=== PATIENT | female | born 1985 | race Caucasian/White ===

== ENCOUNTER 2018-02-04 19:04 | Inpatient (IN) | payer OTHER ==
[~2018-02-04] VITALS: Ht 160 cm; Wt 72.4 kg
[~2018-02-04 19:04] MED LIST: BACTRIM DS TAB1 EACH PO; CYCLOBENZAPRINE10 M1 PO; IBUPROFEN600 M1 PO; IBUPROFEN800 M1 PO; PERCOCET 5-3251 EACH PO; PREDNISONE10 M2 PO
--- NOTE | 2018-02-04 19:21 | ED GI/GU/ABDOMINAL COMPLAINT ---
History of Present Illness General Chief Complaint: Abdominal Pain/Flank Pain Stated Complaint: L FLANK PAIN,FEVER SINCE YEST Source: patient, family, old records Exam Limitations: no limitations Vital Signs & Intake/Output Vital Signs & Intake/Output Vital Signs Date Time Temp Pulse Resp B/P B/P Pulse O2 O2 Flow FiO2 Mean Ox Delivery Rate 02/05 2224 99.4 02/04 2110 100.9 02/04 2057 100.9 101 18 107/56 99 Room Air 02/04 191 102.9 129 17 141/73 97 Room Air Allergies Coded Allergies: No Known Allergies (07/15/17) Triage Note: PT TO ED WITH C/O ONE DAY OF NAUSEA, LEFT FLANK PAIN. REPORTS SHE NOTED HER URINE WAS CLOUDY TODAY. CURRENTLY HAS MENSES, UNABLE TO TELL IF SHE HAS HEMATURIA. HX KIDNEY STONES Triage Nurses Notes Reviewed? yes LMP (ages 10-50): now ? n Is pt currently ? No Onset: Abrupt Duration: day(s): (1), constant Timing: recent history Quality/Severity: aching, cramping, moderate, sharpness Severity Numbers: 7 Location: left flank Radiation: LLQ Activities at Onset: none Prior Abdominal Problems: similar symptoms No Modifying Factors: none Associated Symptoms: nausea/vomiting HPI: 32-year-old female history of kidney stones presents to the ER for evaluation playing of left flank pain radiating to the left lower quadrant than today associated with nausea poor appetite. No vomiting. She does report fevers today. She reports a cloudy urine no dysuria hematuria frequency. History of kidney stones for which she is passed on their own, she reports it feels similar. No history of abdominal surgeries in the past no recent trauma or injury. Has menses now. (Xuan CANTRELL,Socrates) Reconcile Medications Acetaminophen/Diphenhydramine (Tylenol Pm Ex-Strength Caplet) 500 MG-25 MG TABLET 1 TAB PO QPM PRN Pain (Reported) Multivitamin (Daily Value) 1 EACH TABLET 1 TAB PO DAILY supplements (Reported ) (Nicolle RAYA,Santos Rainey) Past History Travel History Traveled to [place] past 21 day No Medical History Any Pertinent Medical History? 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 No (Socrates Lange) Review of Systems Review of Systems Constitutional: Reports: see HPI. Comments Review of systems: See HPI, All other systems negative. Constitutional, fever, HEENT: no sore throat no congestion Cardiovascular: No chest pain Skin: no rashes, no change in skin Respiratory: No dyspnea no cough no sputum no hemoptysis GI: nausea no vomiting, no diarrhea, no bloating/constipation : No dysuria No hematuria, no frequency Muscle skeletal: No joint pain, no back pain, no neck pain, Neurologic: , no headache Heme/endocrine: No bruising Immunology: No lymphadenopathy (Socrates Lange) Physical Exam Physical Exam General Appearance: well developed/nourished, alert, awake Gastrointestinal: soft Comments: Well-developed well-nourished person in no acute distress HEENT: Normal EENT exam; PERRL, EOMI,. HEAD is atraumatic. moist mucous membranes. Neck: Supple, normal range of motion Back: Nontender, LEFT CVA tenderness. Full range of motion Cardiovascular: Regular rate and rhythms no murmurs Respiratory: Chest nontender.There were no bony deformities, no asymmetry. No respiratory distress. Patient speaking in full complete sentences. Breath sounds clear to auscultation bilaterally: NO W/R/R Abdomen: Soft, nontender nondistended, no appreciable organomegaly. Normal bowel sounds. No rebound/guarding, Extremity: No edema, full range of motion of extremitieS Neuro: Alert oriented x3, motor sensory normal. There were no obvious focal neurologic abnormalities. Skin: No appreciable rash on exposed skin, skin is warm and dry. Psych: Mood and affect is normal, memory and judgment is normal. Core Measures ACS in differential dx? No Sepsis Present: No Sepsis Focused Exam Completed? No (Socrates aLnge) ED Sepsis Exam Date of Focused Sepsis Exam: 02/04/18 Time of Focused Sepsis Exam: 2004 Sepsis Cardiac Exam: Tachycardia Sepsis Resp Exam: CTA Sepsis Cap Refill Exam: <2 Sec Sepsis Peripheral Pulse Exam: Normal Sepsis Peripheral Pulse Location: Radial Sepsis Skin Color Exam: Normal for Ethnicity Skin Temp/Moisture Exam: Warm/Dry (Socrates Lange) Progress Differential Diagnosis: bowel obstruction, cholecystitis, ectopic , gastritis, hernia, inflamm bowel dis, intrauterine , kidney stone, ovarian cyst, pancreatitis, peptic ulcer, PUD/GERD, perforated viscous, SBO, threatened AB, UTI/pyelo Plan of Care: Orders Procedure Date/time Status Nothing by Mouth 02/05 B Active CBC WITHOUT DIFFERENTIAL 02/05 06 Active BASIC ELECTROLYTES PLUS BUN&CR 02/05 06 Active Pathway - chart 02/05 2228 Active Pathway - chart 02/04 2222 Active House Staff 02/04 2222 Active Patient Data 02/04 2222 Active EKG 02/04 2222 Active Patient Data 02/04 2217 Active LACTIC ACID 02/04 2217 Complete Saline Lock 02/04 2149 Active Misc Message 02/04 2149 Active ED Holding Orders 02/04 2149 Active Admit to inpatient 02/04 2149 Active Saline Lock 02/05 2144 Active Misc Message 02/05 2144 Active ED Holding Orders 02/05 2144 Active Admit to inpatient 02/05 2144 Active Vital Signs 02/05 2144 Active Code Status 02/05 2144 Active CULTURE,URINE 02/04 1958 Active Add-on Test (ER Only) 02/04 1927 Active Add-on Test (ER Only) 02/04 1921 Active BLOOD CULTURE 02/04 1917 Active LIPASE 02/04 1917 Complete LACTIC ACID 02/04 1917 Complete HUMAN BETA HCG SCREEN 02/04 1917 Complete COMPREHENSIVE METABOLIC PANEL 02/04 1917 Complete CBC WITHOUT DIFFERENTIAL 02/04 1917 Complete URINALYSIS 02/04 1910 Complete Admit to inpatient 02/04 UNK Active VTE Mechanical Prophylaxis 02/04 UNK Active Vital Signs 02/04 UNK Active Activity/Ambulation 02/04 UNK Active Current Medications Sig/Ashley Start time Last Medication Dose Stop Time Status Admin Ceftriaxone Sodium 1,000 MG DAILY 02/05 09 UNVr (Rocephin) Heparin Sodium 5,000 UNIT Q8 02/05 06 UNVr (Porcine) Sodium Chloride 1,000 ML .Q10H 02/04 2355 AC (Normal Saline 0.9%) Potassium Chloride 40 MEQ ONCE ONE 02/04 2245 UNVr (K-Dur) 02/04 2246 Morphine Sulfate 2 MG Q4P PRN 02/04 2230 UNVr (Morphine) Sodium Chloride 1,000 ML BOLUS ONE 02/04 2145 AC 02/04 (Normal Saline 0.9%) 02/04 2244 2223 Laboratory Tests 02/04/180: Lactic Acid 1.2 02/04/182009: Urinalysis LIGHT H, Urine Color YEL, Urine Clarity CLDY H, Urine pH 6.0, Ur Specific [place] 1.025, Urine Protein 100 H, Urine Ketones NEG, Urine Nitrite POS H, Urine Bilirubin NEG, Urine Urobilinogen 0.2, Ur Leukocyte Esterase SMALL H, Ur Microscopic SEDIMENT EXAMINED, Urine RBC 3-5, Urine WBC 15-25 H, Ur Epithelial Cells PACKD H, Urine Bacteria PACKD H, Urine Mucus FEW, Urine Hemoglobin LARGE H, Urine Glucose NEG 02/04/181938: Anion Gap 10, Estimated GFR 43 L, BUN/Creatinine Ratio 11.4, Glucose 137 H, Lactic Acid 2.7 H, Calcium 8.6, Total Bilirubin 0.9, AST 29, ALT 21, Alkaline Phosphatase 75, Total Protein 5.6 L, Albumin 3.1 L, Globulin 2.5, Albumin/ Globulin Ratio 1.2, Lipase < 10 L, Total Beta HCG NEGATIVE, CBC w Diff MAN DIFF ORDERED, RBC 3.77 L, MCV 98.3, MCH 33.4 H, MCHC 33.9, RDW 15.5 H, MPV 9.8, Gran % 93.8 H, Lymphocytes % 2.7 L, Monocytes % 3.4, Eosinophils % 0.1, Basophils % 0, Absolute Granulocytes 22.4 H, Segmented Neutrophils 90 H, Band Neutrophils 4, Absolute Lymphocytes 0.6 L, Lymphocytes 1 L, Monocytes 5, Absolute Monocytes 0.8 H, Absolute Eosinophils 0, Absolute Basophils 0, Platelet Estimate VERIFIED BY SMEAR, Normocytic RBCs VERIFIED, Normochromic RBCs VERIFIED Microbiology 02/04 2010 URINE ROUT: Urine Culture - RECD 02/04 1943 BLOOD: Blood Culture - RECD 02/04 1939 BLOOD: Blood Culture - RECD Labs ordered old records reviewed patient acute IV Toradol IV Dilaudid CAT scan ordered. 2019 repeat temp 99.8; pain imrpved with medication, iv fluids running. d/w pt labs to date, ua provided, rocephin 1g iv ordered. pendnig ct case d/w and signed out to adrien fernandez at [address] Valverde agrees with plan (Socrates Lange) Socrates LEACH PA-C discussed with me HANDOFF 2011 (Socrates Toussaint) Diagnostic Imaging: Viewed by Me: CT Scan. Discussed w/RAD: CT Scan. Initial ED EKG: none Hand-Off Endorsed To: Socrates Toussaint Endorsed Time: 2100 Pending: CT, labs (Socrates Lange) Departure Departure Disposition: STILL A PATIENT Condition: Stable Referrals: Roel RAYA,Levar Johnson (PCP/Family) Departure Forms: Customer Survey General Discharge Information (Socrates Lange) Departure Clinical Impression Primary Impression: Sepsis Secondary Impressions: Kidney stone, Obstructive uropathy, Pyelonephritis (Socrates Toussaint) PA/BLOOD BANK BUSINESS MANAGER Co-Sign Statement Statement: ED Attending supervision documentation- [x] I saw and evaluated the patient. I have also reviewed all the pertinent lab results and diagnostic results. I agree with the findings and the plan of care as documented in the PA's/BLOOD BANK BUSINESS MANAGER's documentation. 02/04/18, 22:19.... well appearing in ED... ct/lab evidence of pyelo... merits iv abx, iv fluids. [] I have reviewed the ED Record and agree with the PA's/BLOOD BANK BUSINESS MANAGER's documentation. [] Additions or exceptions (if any) to the PAs/BLOOD BANK BUSINESS MANAGER's note and plan are summarized below: [] (Nicolle RAYA,Santos Rainey)
[2018-02-04 19:57] LABS: ABSOLUTE BASOPHIL COUNT 0 /CUMM (0.0-0.2); ABSOLUTE EOSINOPHIL COUNT 0 /CUMM (0.0-0.7); ABSOLUTE GRANULOCYTE CT 22.4 /CUMM (1.4-6.5); ABSOLUTE LYMPH COUNT 0.6 /CUMM (1.2-3.4); ABSOLUTE MONOCYTE COUNT 0.8 /CUMM (0.10-0.60); BASOPHIL % 0 % (0.0-2.0); EOSINOPHIL % 0.1 % (0-5); HEMATOCRIT 37.1 % (37-47); MEAN CORPUSCULAR HGB 33.4 PG (27.0-31.0); MEAN CORPUSCULAR HGB CONC 33.9 G/DL (33.0-37.0); MEAN CORPUSCULAR VOLUME 98.3 FL (81.0-99.0); MEAN PLATELET VOLUME 9.8 FL (7.4-10.4); PLATELET COUNT 244 /CUMM (130-400); RBC DISTRIBUTION WIDTH 15.5 % (11.5-14.5); RED BLOOD CELL CT 3.77 /CUMM (4.20-5.40); WHITE BLOOD CELL COUNT 23.9 /CUMM (4.8-10.8)
[2018-02-04 20:01] LABS: GRANULOCYTE % 93.8 % (42.2-75.2)
--- NOTE | 2018-02-04 21:19 | CT SCAN REPORT ---
EXAMINATION: CT ABDOMEN AND PELVIS WITHOUT CONTRAST CLINICAL INFORMATION: Kidney stone COMPARISON: 2017 TECHNIQUE: Multidetector volumetric imaging was performed from the superior aspect of the liver through the pubic symphysis. Sagittal and coronal reformatted images were obtained on the technologist's workstation. DLP: 257 mGy-cm FINDINGS: LUNG BASES: The visualized lung bases are unremarkable. LIVER, GALLBLADDER, AND BILIARY TREE: The liver is enlarged. The gallbladder is unremarkable with no evidence of radiopaque gallstones, gallbladder wall thickening, or obvious pericholecystic inflammatory changes. PANCREAS: Unremarkable. SPLEEN: Unremarkable. ADRENAL GLANDS: Unremarkable. KIDNEYS AND URETERS: There is LEFT hydronephrosis and hydroureter secondary to a stone lodged in the LEFT ureteropelvic junction measure about 5.5 mm in diameter. Left kidney is mildly swollen, there is mild perinephric fat stranding. No CT evidence of rupture of the LEFT renal pelvis. Right kidney is normal. There are additional 2 mm nonobstructing stones in the upper and calyces LEFT kidney. BLADDER: Unremarkable. GASTROINTESTINAL TRACT: The small and large bowel are unremarkable. The appendix is unremarkable. ABDOMINAL WALL: No significant hernia is appreciated. LYMPH NODES: There are mildly prominent retroperitoneal LEFT para-aortic lymph nodes might be reactive. VASCULAR: Unremarkable. PELVIC VISCERA: IUD in place. OSSEOUS STRUCTURES: Unremarkable. IMPRESSION: 1. Left renal hydronephrosis secondary to a 5.5 mm stone now lodged in the LEFT ureter at the ureterovesicular junction. Left kidney mildly swollen, mild perinephric fat stranding present. 2. There are additional 2 mm nonobstructing stones in the upper calyx LEFT kidney. 2 mm nonobstructing stone lower calyx LEFT kidney. 3. Enlarged liver unchanged. 4. Mildly enlarged retroperitoneal LEFT periaortic lymph nodes might be reactive. Clinical correlation and follow-up recommended.
--- NOTE | 2018-02-04 21:49 | History & Physical ---
Kika Ryan 02/04/182137: General Information and HPI MD Statement: I have seen and personally examined CHATO NIÑO and documented this H&P. The patient is a 32 year old F who presented with a patient stated chief complaint of [Flank pain]. Source of Information: patient, old records Exam Limitations: no limitations History of Present Illness: Ms. Niño is a 32yo F w/ pMH of nephrolithiasis in 2002 s/p passage of two by medication without procedure, and one more stone left in the left kidney, benign breast tumors s/p resection, IUD x 7 yrs, hx of HTN during , hx of UTI in 2017, presented with left flank pain radiating to the left lower quadrant w/ fever/nausea/decreased appetite, but no vomit. She had this left flank pain that was not resolved by Aleve overnight. She is also currently in period x 3 days with spotty bloody, however denied hematuria and endorsed cloudy urine, with possible foul smell during ER. She had loose stool couple days ago but not currently. During our clinical interaction, patient denied recent travel/sick contacts, lightheadedness/diaphoresis/night sweat/weight change/cough/SOB/Chest Pain/ Palpitation/bowel movement abnormality, or other skin/musculoskeletal/ neurological/mood disorders. -Smoking: denied -Alcohol: occasional -Rec Drugs: denied Allergies/Medications Allergies: Coded Allergies: No Known Allergies (07/15/17) Home Med list Acetaminophen/Diphenhydramine (Tylenol Pm Ex-Strength Caplet) 500 MG-25 MG TABLET 1 TAB PO QPM PRN Pain (Reported) Multivitamin (Daily Value) 1 EACH TABLET 1 TAB PO DAILY supplements (Reported ) Past History Travel History Traveled to [place] past 21 day No Medical History Neurological: NONE EENT: NONE Cardiovascular: NONE Respiratory: NONE Gastrointestinal: NONE Hepatic: NONE Renal: KIDNEY STONES Musculoskeletal: NONE Psychiatric: NONE Endocrine: NONE Blood Disorders: NONE Cancer(s): NONE 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 Ambulation: independent IADLs Independent: shopping, housework, finances, food prep, telephone, transportation , medication admin. Review of Systems Review of Systems Constitutional: Reports: see HPI. Exam & Diagnostic Data Last 24 Hrs of Vital Signs/I&O Vital Signs Date Time Temp Pulse Resp B/P B/P Pulse O2 O2 Flow FiO2 Mean Ox Delivery Rate 02/04 2110 100.9 02/04 2057 100.9 101 18 107/56 99 Room Air 02/04 1911 102.9 129 17 141/73 97 Room Air Physical Exam General Appearance Alert, Oriented X3, Cooperative, Mild Distress Skin No Rashes, No Breakdown, No Significant Lesion Skin Temp/Moisture Exam: Warm/Dry Sepsis Skin Exam (color): Normal for Ethnicity HEENT Atraumatic, PERRLA Neck Supple, No JVD Lymphatic Axillary nl, Cervical nl Cardiovascular tachycardia, regular rhythm Lungs Clear to Auscultation, Normal Air Movement Abdomen Normal Bowel Sounds, Soft, CVA tenderness at left flank LLQ ab tenderness shooting from the back Neurological Normal Speech, Strength at 5/5 X4 Ext, Normal Tone, Sensation Intact Extremities No Edema, Normal Pulses, No Tenderness/Swelling Last 24 Hrs of Labs/[place]: Laboratory Tests 02/04/182199: Lactic Acid 1.2 02/04/182009: Urinalysis LIGHT H, Urine Color YEL, Urine Clarity CLDY H, Urine pH 6.0, Ur Specific [place] 1.025, Urine Protein 100 H, Urine Ketones NEG, Urine Nitrite POS H, Urine Bilirubin NEG, Urine Urobilinogen 0.2, Ur Leukocyte Esterase SMALL H, Ur Microscopic SEDIMENT EXAMINED, Urine RBC 3-5, Urine WBC 15-25 H, Ur Epithelial Cells PACKD H, Urine Bacteria PACKD H, Urine Mucus FEW, Urine Hemoglobin LARGE H, Urine Glucose NEG 02/04/18 193: Anion Gap 10, Estimated GFR 43 L, BUN/Creatinine Ratio 11.4, Glucose 137 H, Lactic Acid 2.7 H, Calcium 8.6, Total Bilirubin 0.9, AST 29, ALT 21, Alkaline Phosphatase 75, Total Protein 5.6 L, Albumin 3.1 L, Globulin 2.5, Albumin/ Globulin Ratio 1.2, Lipase < 10 L, Total Beta HCG NEGATIVE, CBC w Diff MAN DIFF ORDERED, RBC 3.77 L, MCV 98.3, MCH 33.4 H, MCHC 33.9, RDW 15.5 H, MPV 9.8, Gran % 93.8 H, Lymphocytes % 2.7 L, Monocytes % 3.4, Eosinophils % 0.1, Basophils % 0, Absolute Granulocytes 22.4 H, Segmented Neutrophils 90 H, Band Neutrophils 4, Absolute Lymphocytes 0.6 L, Lymphocytes 1 L, Monocytes 5, Absolute Monocytes 0.8 H, Absolute Eosinophils 0, Absolute Basophils 0, Platelet Estimate VERIFIED BY SMEAR, Normocytic RBCs VERIFIED, Normochromic RBCs VERIFIED Microbiology 02/04 2010 URINE ROUT: Urine Culture - RECD 02/04 1943 BLOOD: Blood Culture - RECD 02/04 1939 BLOOD: Blood Culture - RECD Assessment/Plan Assessment: On admission, Vitals: Tmax 102.9, Tachycardia 129->101, RR 18, BP 107/56, 99% RA -CBC: WBC 23.9, H/H stable, w/ gran 93.8% -BMP: Hyponatremia 133, Hypokalemia 3.3, elevated Cr 1.4, lactic acidosis 2.7 -UA: +ve LE/nitrites/WBC -Ab CT: 1. Left renal hydronephrosis secondary to a 5.5 mm stone now lodged in the LEFT ureter at the ureterovesicular junction. Left kidney mildly swollen, mild perinephric fat stranding present. 2. There are additional 2 mm nonobstructing stones in the upper calyx LEFT kidney. 2 mm nonobstructing stone lower calyx LEFT kidney. 3. Enlarged liver unchanged. 4. Mildly enlarged retroperitoneal LEFT periaortic lymph nodes might be reactive. Clinical correlation and follow-up recommended. Problem list/Assessment/Hospital Course: #Severe sepsis 2/2 pylonephritis (fever, tachycardia, source of infx, lactic acidosis) #Pyelonephritis w/ Nephrolithiasis/obstructive uropathy #KENNEDY 2/2 dehydration #Hyponatremia #Hypokalemia #PMH of nephrolithiasis s/p stone passage, UTI, IUD - Admit to general medicine, vitals per protocol - Pain control per pathway, patient's pain was not controlled by dialudid 2mg IV /toradol, will start with morphien 2mg q4prn and check - obtain baseline EKG - continuous IVF and trend BEP - replete K w/ PO K-dur once and recheck - start ABx ceftriaxone and tailor per clinical course - Pending urology consult in the AM, will keep NPO for now for possible procedures - Obtain baseline EKG - pending urine/blood cultures for Abx tailoring DVT prophylaxis Pharm PPX + ALPS NPO Full Code As Ranked By This Provider Problem List: 1. Obstructive uropathy 2. Pyelonephritis 3. Sepsis 4. Lactic acidosis Core Measures/Misc (05/27) Acute Coronary Syndrome ACS Diagnosis: No Congestive Heart Failure Congestive Heart Failure Diagnosis No Cerebrovascular Accident CVA/TIA Diagnosis: No VTE (View Protocol) VTE Risk Factors Acute Medical Illness No Mechanical VTE Prophylaxis d/t N/A MechProphylax Ordered No VTE Pharm Prophylaxis d/t NA PharmProphylax ordered Sepsis (View protocol) Sepsis Present: Yes If YES complete Sepsis Event Note If YES complete Sepsis Event Note Serafin Murray 02/04/18 2303: Core Measures/Misc (05/27) Sepsis (View protocol) If YES complete Sepsis Event Note If YES complete Sepsis Event Note Resident Review Statement Resident Statement: examined this patient, discussed with procurement intern, agreed with procurement intern Other Findings: Ms Niño is a 32 year old woman w/ a PMHx of nephrolithiasis( dx'ed 2012 ), last UTI ( dx'ed 2012), came in for a evaluation of left flank pain radiating to the LLQ that started on the previous night of presentatation. Pain was not relieved on taking NSAID, and she woke up early in the am with worsening pain, associated w/ nausea, but no vomiting. Reported fever and chills. Also reported cloudy urine, and dyspurea but no hematurea. At the time of admission, temp 102.9, NM 129, RR 17, BP 141/73, 97% RA. General Exam: AAOx3, mild distress, Skin: No rashes, no breakdown, mucus membranes dry ;HEENT: PERRLA, EOMI;Neck: Supple, No JVD; No cervical lymphadenopathy;CVS: tachycardia, Reg Rate, Normal S1,S2, No MGR;Resp: Normal air entry, no ronchi/rales;Abdomen: Soft, LLQ tenderness, left CVA tenderness, Normal Bowel Sounds;Neuro: Normal Speech, Strength 5/5 b/l x 4 extremities, Sensation intact, CN III-XII NL, Reflexes 2+;Extremities: No cyanosis, no pedal edema. Pertinent lab findings: WBC: 23.9(93% granulocytes), Hb 12.6, MCV 98.3, Platelets 244. Sodium 133, Potassium 3.3, Cl 99, CO2 24, AG 10 Renal Fn- BUN 16, Sr Cr 1.4 Lactate 2.7--> Liver fn- AST 29, ALT 21, Alk Phs 75 Albumin 3.1. UA- cloudy, Protein > 100, nitrites +, ULE +, Epithelial cells + ( not a great sample), bacteria + CT scan abdomen 02/04/18- 1. Left renal hydronephrosis secondary to a 5.5 mm stone now lodged in the LEFT ureter at the ureterovesicular junction. Left kidney mildly swollen, mild perinephric fat stranding present. 2. There are additional 2 mm nonobstructing stones in the upper calyx LEFT kidney. 2 mm nonobstructing stone lower calyx LEFT kidney. 3. Enlarged liver unchanged. 4. Mildly enlarged retroperitoneal LEFT periaortic lymph nodes might be reactive. Clinical correlation and follow-up recommended. Etiology in this case with dysuria associated with fever, chills, costovertebral /suprapubic tenderness is likely from Pyelonephritis. Considering pyelonephritis being a clinical diagnosis, radiological evidence of fat stranding is confirmed the diagnosis. Bacterial etiology with Escherichia coli being the most likely organism, but other uropathogens such as Klebsiella, Citrobacter, Enterobacter are possible etiologies. Predisposing factors such as mechanical obstruction from nephrolithiasis is the likely etiology. Differential diagnosis considered PID, renal or perinephric abscesses. Problem list: 1. Pyelonephritis 2. KENNEDY 3. Nephrolithiasis 4. Sepsis 5. Electrolyte abnormality. - Admit the patient to general medicine service. -Empiric antibiotics with ceftriaxone, pending urine culture -Follow blood culture, usually do not correlate with more severe disease. -Monitor vitals closely -Follow CBCs daily -Treat sepsis with 0.9% saline, follow blood cultures, trend lactate - Pain management w/ opiates - EKG for checkin QTc, and to r/o arrythmias given her tachycardia. - Anti-emetics prn - Check Urine lytes, FENa -If the patient has abnormal hemodynamics, call urology LEANDRO for a possible stent placement. -Urology has been consulted by ER, who plan to take the patient to the OR for stent placement. Housekeeping checklist: #1 DVT prophylaxis-subcutaneous heparin #2 GI prophylaxis-Protonix if needed. #3 CODE STATUS-full code #4 consults-urology #5 nothing by mouth Joon RAYA, [facility] 02/04/18 2322: Core Measures/Misc (05/27) Sepsis (View protocol) If YES complete Sepsis Event Note If YES complete Sepsis Event Note Attending MD Review Statement Attending Statement Attending MD Statement: examined this patient, discuss w/resident/PA/CONSTRUCTION PERSON, agreed w/resident/PA/CONSTRUCTION PERSON, discussed with family, reviewed images, amended to note Attending Assessment/Plan: 32 yo F with h/o nephrolithiasis, is here with left flank pain that started one night prior to admission. Pain radiates into the left lower quadrant and is associated with nausea, fever and poor appetite. She took NSAIDs without relief . She reports dysuria and foul smelling cloudy urine today. She has her periods so is unable to report any hematuria. She has had kidney stones in the past, did not require any procedures and was able to pass them on her own. Vitals: Tmax 102.9, tachycardic 90-120's, BP 107/56, sats 98% RA. Exam: AAO, in mild distress due to pain, dry mucosa, Neck supple, Skin warm and dry, Capillary refill ~ 2 secs, Chest clear, Heart S1S2 regular, Abdomen soft, tender LLQ, left CVA tenderness+. Labs: WBC 23.9, bands 4, Na 133, K 3.3, BUN 16, Creat 1.4 (baseline 0.8), glucose 137, lactic acid 2.7. Total Beta HCG negative. UA cloudy, proteinuria, positive nitrite, small LE, WBC 15-25, bacteria packed. CT abd/pelvis: left renal hydronephrosis secondary to 5.5 mm stone at the ureterovesicular junction, left kidney mildly swollen, mild perinephric fat stranding+. Additional nonobstructing stones in left kidney. Assessment and plan: 1. Severe sepsis possibly gram negative infection 2. Acute pyelonephritis 3. Obstructive uropathy with left hydronephrosis 4. Acute kidney injury 5. Lactic acidosis 6. Hypokalemia and hyponatremia - Admit to General medicine - Panculture - Initiate IV ceftriaxone - IV fluids with potassium supplementation - NPO after midnight for possible stent placement - Urology consult - Pain management with IV morphine PRN DVT ppx Hep SC. Full code.
--- NOTE | 2018-02-04 21:55 | Admission Certification ---
Admission Certification Certification Statement - As attending physician, I certify that at the time of - admission, based on clinical presentation, severity of - symptoms, need for further diagnostic testing and - therapeutic interventions, and risk of adverse outcomes - without in-hospital treatment, in my clinical assessment, - this patient requires an acute hospital stay for a minimum - of two nights or longer. I have also considered psychsocial - factors such as support system, advanced age, financial - issues, cognitive issues, and failed out-patient treatments, - past re-admission history, safety of patient, and lack of - compliance as applicable. Specific rationale supporting this admission is: Sepsis, obstructive uropathy, acute pyelonephritis, KENNEDY.
[2018-02-04] MEDS ORDERED: TYLENOL PM EX-1 EACH PO (22:12)
[2018-02-04] MEDS ORDERED: DAILY VALUE1 EACH PO (22:12)
[2018-02-05 00:34] VITALS: BP 98/60
[2018-02-05 07:10] VITALS: BP 120/76
--- NOTE | 2018-02-05 07:20 | PN- Housestaff ---
Subjective Follow-up For: Left hydroureteronephrosis Subjective: Patient seen and examined at bedside. No overnight events. Patient appears to be in severe pain. She complains of left flank pain of 8 x 10 severity with radiation to the suprapubic region. She denies nausea, vomiting. Review of Systems Constitutional: Reports: no symptoms, see HPI. Objective Last 24 Hrs of Vital Signs/I&O Vital Signs Date Time Temp Pulse Resp B/P B/P Pulse O2 O2 Flow FiO2 Mean Ox Delivery Rate 02/05 0710 97.6 120 20 120/76 94 Room Air 02/05 0054 96 Room Air 02/05 0034 98.3 108 20 98/60 96 Room Air 02/04 2321 99.4 90 18 102/62 99 Room Air 02/04 2224 99.4 98 18 102/59 98 Room Air 02/04 2110 100.9 02/04 2057 100.9 101 18 107/56 99 Room Air 02/04 1911 102.9 129 17 141/73 97 Room Air Intake & Output 02/05 1600 02/05 0800 02/05 0000 Intake Total 650 Output Total 600 Balance 50 Intake, IV 650 Output, Urine 600 Patient 146 lb 145 lb Weight Weight Bed scale Reported by Patient Measurement Method Physical Exam General Appearance: Alert, Oriented X3, Cooperative, No Acute Distress Cardiovascular: Regular Rate, Normal S1, Normal S2, No Murmurs Lungs: Normal Air Movement Abdomen: left flank tenderness Neurological: Normal Speech, Strength at 5/5 X4 Ext, Normal Tone, Sensation Intact Current Medications: Current Medications Sig/Ashley Start time Last Medication Dose Route Stop Time Status Admin Acetaminophen 1,000 MG Q8P PRN 02/05 0945 02/05 N/A 1 UNIT IV 02/06 1744 1046 Acetaminophen 0 .STK-MED ONE 02/04 2050 DC IV Acetaminophen 1,000 MG ONCE ONE 02/04 2045 DC 02/04 N/A 1 UNIT IV 02/04 Albuterol Sulfate 2 PUF Q4 PRN 02/05 010 AC 02/05 INH 0451 Alprazolam 0.25 MG TID PRN 02/05 0100 AC 02/05 PO 02/12 0059 0945 Ceftriaxone Sodium 1,000 MG 02/05 AC IV Ceftriaxone Sodium 1,000 MG DAILY 02/05 09 DC IV Ceftriaxone Sodium 0 .STK-MED ONE 02/05 2108 DC .ROUTE Ceftriaxone Sodium 1,000 MG ONCE ONE 02/04 2045 DC 02/04 IV 02/04 Dextrose/Sodium 1,000 ML Q13H 02/05 0745 AC 02/05 Chloride IV 0802 Heparin Sodium 5,000 UNIT Q8 02/05 0600 AC 02/05 (Porcine) SC 0534 Hydromorphone HCl 0 .STK-MED ONE 02/04 2145 DC .ROUTE Hydromorphone HCl 1 MG ONCE ONE 02/04 2130 DC 02/04 IV 02/04 Hydromorphone HCl 0 .STK-MED ONE 02/04 1942 DC .ROUTE Hydromorphone HCl 1 MG ONCE ONE 02/04 193 DC 02/04 IV 02/04 Ketorolac 0 .STK-MED ONE 02/04 1941 DC Tromethamine .ROUTE Ketorolac 30 MG ONCE ONE 02/04 193 DC 02/04 Tromethamine IV 02/04 1931 194 Morphine Sulfate 4 MG Q4P PRN 02/05 0315 02/05 IV 0940 Morphine Sulfate 0 .STK-MED ONE 02/04 224 DC .ROUTE Morphine Sulfate 4 MG ONCE ONE 02/04 2230 DC IV 02/04 223 Morphine Sulfate 2 MG ONCE ONE 02/04 2230 DC 02/04 IV 02/04 223 2240 Morphine Sulfate 2 MG Q4P PRN 02/04 2230 DC 02/05 IV 0040 Ondansetron HCl 0 .STK-MED ONE 02/04 233 DC .ROUTE Ondansetron HCl 4 MG Q6P PRN 02/04 2330 AC 02/05 IV 1006 Ondansetron HCl 4 MG ONCE ONE 02/05 2000 DC 02/04 IV 02/04 Ondansetron HCl 0 .STK-MED ONE 02/04 1958 DC .ROUTE Potassium Chloride 0 .STK-MED ONE 02/04 2345 DC PO Potassium Chloride 40 MEQ ONCE ONE 02/04 2245 DC 02/04 PO 02/04 2246 2339 Sodium Chloride 1,000 ML .Q10H 02/04 2355 AC 02/05 IV 02/05 1954 0033 Sodium Chloride 1,000 ML BOLUS ONE 02/04 2145 DC 02/04 IV 02/043 Sodium Chloride 1,000 ML BOLUS ONE 02/04 2030 DC 02/04 IV 02/04 Sodium Chloride 1,000 ML BOLUS ONE 02/04 1945 DC 02/04 IV 02/04 Sodium Chloride 1,000 ML BOLUS ONE 02/04 193 DC 02/04 IV 02/04 Last 24 Hrs of Lab/[place] Results Last 24 Hrs of Labs/Mics: Laboratory Tests 02/05/18 0716: Anion Gap 11, Estimated GFR 47 L, BUN/Creatinine Ratio 13.1, CBC w Diff MAN DIFF ORDERED, RBC 3.38 L, MCV 99.0, MCH 33.2 H, MCHC 33.5, RDW 15.3 H, MPV 10.9 H, Gran % 93.0 H, Lymphocytes % 3.6 L, Monocytes % 2.6, Eosinophils % 0.8, Basophils % 0, Absolute Granulocytes 16.7 H, Segmented Neutrophils 71, Band Neutrophils 14 H, Absolute Lymphocytes 0.6 L, Lymphocytes 4 L, Monocytes 6, Absolute Monocytes 0.5, Eosinophils 5, Absolute Eosinophils 0.2, Absolute Basophils 0, Platelet Estimate VERIFIED BY SMEAR, Normocytic RBCs VERIFIED, Normochromic RBCs VERIFIED 02/04/182199: Lactic Acid 1.2 02/04/182011: Ur Random Creatinine 206.7, Ur Random Sodium < 5 L, Ur Random Potassium 57.8, Fraction Sodium Excret 0.0 02/04/18 2010: Urinalysis LIGHT H, Urine Color YEL, Urine Clarity CLDY H, Urine pH 6.0, Ur Specific [address] 1.025, Urine Protein 100 H, Urine Ketones NEG, Urine Nitrite POS H, Urine Bilirubin NEG, Urine Urobilinogen 0.2, Ur Leukocyte Esterase SMALL H, Ur Microscopic SEDIMENT EXAMINED, Urine RBC 3-5, Urine WBC 15-25 H, Ur Epithelial Cells PACKD H, Urine Bacteria PACKD H, Urine Mucus FEW, Urine Hemoglobin LARGE H, Urine Glucose NEG 02/04/181938: Anion Gap 10, Estimated GFR 43 L, BUN/Creatinine Ratio 11.4, Glucose 137 H, Lactic Acid 2.7 H, Calcium 8.6, Total Bilirubin 0.9, AST 29, ALT 21, Alkaline Phosphatase 75, Total Protein 5.6 L, Albumin 3.1 L, Globulin 2.5, Albumin/ Globulin Ratio 1.2, Lipase < 10 L, Total Beta HCG NEGATIVE, CBC w Diff MAN DIFF ORDERED, RBC 3.77 L, MCV 98.3, MCH 33.4 H, MCHC 33.9, RDW 15.5 H, MPV 9.8, Gran % 93.8 H, Lymphocytes % 2.7 L, Monocytes % 3.4, Eosinophils % 0.1, Basophils % 0, Absolute Granulocytes 22.4 H, Segmented Neutrophils 90 H, Band Neutrophils 4, Absolute Lymphocytes 0.6 L, Lymphocytes 1 L, Monocytes 5, Absolute Monocytes 0.8 H, Absolute Eosinophils 0, Absolute Basophils 0, Platelet Estimate VERIFIED BY SMEAR, Normocytic RBCs VERIFIED, Normochromic RBCs VERIFIED Microbiology 02/04 2010 URINE ROUT: Urine Culture - RES ESCHERICHIA COLI 02/04 1943 BLOOD: Blood Culture - RES GRAM NEGATIVE RODS 02/04 1939 BLOOD: Blood Culture - RES GRAM NEGATIVE RODS Assessment/Plan Assessment: Ms Niño is a 32 year old woman w/ a PMHx of nephrolithiasis( dx'ed 2012 ), last UTI ( dx'ed 2012), came in for a evaluation of left flank pain radiating to the LLQ that started on the previous night of presentatation. Pain was not relieved on taking NSAID, and she woke up early in the am with worsening pain, associated w/ nausea, but no vomiting. Reported fever and chills. Also reported cloudy urine, and dyspurea but no hematurea. Assessment and plan Problem list: 1. Left Pyelonephritis secondary due to nephrolithiasis causing left-sided hydroureteronephrosis. 2. KENNEDY-resolving 3. Sepsis * Patient being treated with IV fluids for her AK I secondary due to left nephrolithiasis. Patient is nothing by mouth for left ureteral stent placement today. * Sepsis-patient is bacteremic. Has 14 bands but her leukocytosis is trending down. Patient urine culture growing Escherichia coli. We will follow final cultures. Patient is on ceftriaxone. Patient blood culture is growing gram- negative rods. We will follow final cultures. * Spoke with Dr. Bansal over the phone who will do left renal stent placement today. * Strict I's and O's * Monitor vitals. Code-full code DVT prophylaxis-heparin Problem List: 1. Obstructive uropathy Pain Ratin Pain Location: left flank Pain Goal: Remain pain free Pain Plan: tylenol Tomorrow's Labs & Rationales: robe holm
--- NOTE | 2018-02-05 08:24 | PN- Student ---
Subjective Subjective: No acute events overnight. Patient seen and examined this morning. patient complains of pain al over the body, specially in the left side back and stomach. Objective Objective: Vital Signs Date Time Temp Pulse Resp B/P B/P Pulse O2 O2 Flow FiO2 Mean Ox Delivery Rate 02/05 1311 97.7 100 18 116/74 96 Room Air 02/05 0710 97.6 120 20 120/76 94 Room Air 02/05 0054 96 Room Air 02/05 0034 98.3 108 20 98/60 96 Room Air 02/04 2321 99.4 90 18 102/62 99 Room Air 02/04 2224 99.4 98 18 102/59 98 Room Air 02/04 2110 100.9 02/04 2057 100.9 101 18 107/56 99 Room Air 02/04 1911 102.9 129 17 141/73 97 Room Air Intake & Output 02/05 1600 02/05 0800 02/05 0000 Intake Total 650 Output Total 600 Balance 50 Intake, IV 650 Output, Urine 600 Patient 146 lb 145 lb Weight Weight Bed scale Reported by Patient Measurement Method PE: General= young female in a lot of pain, moving around trying to look for a comfortable position for the pain. HEENT= NCAT, anicteric sclera, moit oral mucosa, no exudate Lungs= symetrical chest expansion, clear bilateral CVS= normal S1 and S2, no murmur, rub or gallop Abd= present bowel sounds, tender to palpation over the left upper and lower quadrant, some cva tenderness, nondistended Results Results: Laboratory Tests 02/05/18 0716: Anion Gap 11, Estimated GFR 47 L, BUN/Creatinine Ratio 13.1, CBC w Diff MAN DIFF ORDERED, RBC 3.38 L, MCV 99.0, MCH 33.2 H, MCHC 33.5, RDW 15.3 H, MPV 10.9 H, Gran % 93.0 H, Lymphocytes % 3.6 L, Monocytes % 2.6, Eosinophils % 0.8, Basophils % 0, Absolute Granulocytes 16.7 H, Segmented Neutrophils 71, Band Neutrophils 14 H, Absolute Lymphocytes 0.6 L, Lymphocytes 4 L, Monocytes 6, Absolute Monocytes 0.5, Eosinophils 5, Absolute Eosinophils 0.2, Absolute Basophils 0, Platelet Estimate VERIFIED BY SMEAR, Normocytic RBCs VERIFIED, Normochromic RBCs VERIFIED 02/04/18 2200: Lactic Acid 1.2 02/04/182011: Ur Random Creatinine 206.7, Ur Random Sodium < 5 L, Ur Random Potassium 57.8, Fraction Sodium Excret 0.0 02/04/182009: Urinalysis LIGHT H, Urine Color YEL, Urine Clarity CLDY H, Urine pH 6.0, Ur Specific [place] 1.025, Urine Protein 100 H, Urine Ketones NEG, Urine Nitrite POS H, Urine Bilirubin NEG, Urine Urobilinogen 0.2, Ur Leukocyte Esterase SMALL H, Ur Microscopic SEDIMENT EXAMINED, Urine RBC 3-5, Urine WBC 15-25 H, Ur Epithelial Cells PACKD H, Urine Bacteria PACKD H, Urine Mucus FEW, Urine Hemoglobin LARGE H, Urine Glucose NEG 02/04/181938: Anion Gap 10, Estimated GFR 43 L, BUN/Creatinine Ratio 11.4, Glucose 137 H, Lactic Acid 2.7 H, Calcium 8.6, Total Bilirubin 0.9, AST 29, ALT 21, Alkaline Phosphatase 75, Total Protein 5.6 L, Albumin 3.1 L, Globulin 2.5, Albumin/ Globulin Ratio 1.2, Lipase < 10 L, Total Beta HCG NEGATIVE, CBC w Diff MAN DIFF ORDERED, RBC 3.77 L, MCV 98.3, MCH 33.4 H, MCHC 33.9, RDW 15.5 H, MPV 9.8, Gran % 93.8 H, Lymphocytes % 2.7 L, Monocytes % 3.4, Eosinophils % 0.1, Basophils % 0, Absolute Granulocytes 22.4 H, Segmented Neutrophils 90 H, Band Neutrophils 4, Absolute Lymphocytes 0.6 L, Lymphocytes 1 L, Monocytes 5, Absolute Monocytes 0.8 H, Absolute Eosinophils 0, Absolute Basophils 0, Platelet Estimate VERIFIED BY SMEAR, Normocytic RBCs VERIFIED, Normochromic RBCs VERIFIED Microbiology 02/04 2010 URINE ROUT: Urine Culture - RES ESCHERICHIA COLI 02/04 1943 BLOOD: Blood Culture - RES GRAM NEGATIVE RODS 02/04 1939 BLOOD: Blood Culture - RES GRAM NEGATIVE RODS Assessment/Plan Assessment: 32 y/o F with PMHx of nephrolithiasis (2002) s/p passage, benign breast tumor s/ p resection, UTI (2016) who presented to the ED with left flank pain radiating to the lower quadrant, fever, nausea, cloudy urine with possible foul smelling. At the time of admission, vitals- fever of 102.9, tachycardia of 129 and BP of 107/56. Labs were concerning of WBC of 23.9 w/ 93.8% gran, hyponatremia of 133, hypokalemia of 3.3, elevated Cr of 1.4, lactic acidosis of 2.7. UA with +ve le, nitrates and pyuria. CT abd- left renal hydronephrosis 2/2 to 5.5 mm stone at the ureterovesicular junction (see report). At this time, sepsis 2/2 to pyelonephritis in the setting of obstructive uropathy. Blood cx positive for gram - dennise. urine cx positive for E. coli. Lactic acid trended dowm from 2.7 to 1.2 after IV fluids. WBC 18 from 24 under abx. Hyponatremia and hypokalemia significantly improved with IV fluids and K repletion. Patient NPO for stent plqacement today. Plan: Sepsis 2/2 to pyelonephritis due to obstructive stone: -Zofran PRN for nausea -Haivana Nakya control with morphine 4mg PRN and Tylenol -Ceftriaxone 1g IV for now, sensivity pending -F/U operative report and urology recs KENNEDY -FENa <1% and Harsh <5 consistent with prerenal, but in the setting of neprolithiasis can be postrenal Hyponatremia (improved) Hypokalemia (improved) DVT ppx-Hep SQ Code- Full code
[2018-02-05 08:52] LABS: ABSOLUTE BASOPHIL COUNT 0 /CUMM (0.0-0.2); ABSOLUTE EOSINOPHIL COUNT 0.2 /CUMM (0.0-0.7); ABSOLUTE GRANULOCYTE CT 16.7 /CUMM (1.4-6.5); ABSOLUTE LYMPH COUNT 0.6 /CUMM (1.2-3.4); ABSOLUTE MONOCYTE COUNT 0.5 /CUMM (0.10-0.60); BASOPHIL % 0 % (0.0-2.0); EOSINOPHIL % 0.8 % (0-5); HEMATOCRIT 33.5 % (37-47); MEAN CORPUSCULAR HGB 33.2 PG (27.0-31.0); MEAN CORPUSCULAR HGB CONC 33.5 G/DL (33.0-37.0); MEAN PLATELET VOLUME 10.9 FL (7.4-10.4); PLATELET COUNT 187 /CUMM (130-400); RBC DISTRIBUTION WIDTH 15.3 % (11.5-14.5); RED BLOOD CELL CT 3.38 /CUMM (4.20-5.40)
--- NOTE | 2018-02-05 10:52 | Cons- Urology ---
General Information and HPI Consulting Request Date of Consult: 02/05/18 Requested By: Serena Jean MD Reason for Consult: septic with obstructing stone Source of Information: patient, old records Exam Limitations: no limitations History of Present Illness: This is a 32yo F w/ PMH of nephrolithiasis in 2002 with spontaneous passage with infrequent UTI hx who presented to the ER with left flank pain radiating to the left lower quadrant w/ fever/nausea/decreased appetite but no vomit. Aleve did not relieve her left flank pain. She has her menses but does not believe she has gross hematuria but her urine was foul smelling. Allergies/Medications Allergies: Coded Allergies: No Known Allergies (07/15/17) Home Med List: Acetaminophen/Diphenhydramine (Tylenol Pm Ex-Strength Caplet) 500 MG-25 MG TABLET 1 TAB PO QPM PRN Pain (Reported) Multivitamin (Daily Value) 1 EACH TABLET 1 TAB PO DAILY supplements (Reported ) Past History Medical History Blood Transfusion Hx: No Neurological: migraine, seizure EENT: NONE Cardiovascular: NONE Respiratory: asthma Gastrointestinal: NONE Hepatic: NONE Renal: KIDNEY STONES Musculoskeletal: NONE Psychiatric: anxiety Endocrine: NONE Blood Disorders: NONE Cancer(s): MAGALI BENIGN BREAST TUMORS S/P RESECTIONS 8469-3103 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 Home Services at Home: None Smoking Status: Current Everyday Smoker Functional Ability ADLs Independent: dressing, eating, toileting, bathing. Ambulation: independent IADLs Independent: shopping, housework, finances, food prep, telephone, transportation , medication admin. Review of Systems Review of Systems Constitutional: Reports: fever, weakness. EENTM: Reports: no symptoms. Cardiovascular: Reports: no symptoms. Respiratory: Reports: no symptoms. GI: Reports: constipation. Musculoskeletal: Reports: back pain. Skin: Reports: no symptoms. Neurological/Psychological: Reports: no symptoms. Hematologic/Endocrine: Reports: no symptoms. Immunologic/Allergic: Reports: no symptoms. Exam & Diagnostic Data Vital Signs and I&O Vital Signs Date Time Temp Pulse Resp B/P B/P Pulse O2 O2 Flow FiO2 Mean Ox Delivery Rate 02/05 0710 97.6 120 20 120/76 94 Room Air 02/05 0054 96 Room Air 05/29 0034 98.3 108 20 98/60 96 Room Air 02/041 99.4 90 18 102/62 99 Room Air 02/044 99.4 98 18 102/59 98 Room Air 02/040 100.9 02/04 2057 100.9 101 18 107/56 99 Room Air 02/04 1911 102.9 129 17 141/73 97 Room Air Intake & Output 02/05 0800 02/05 0000 02/04 0802/04 0000 Intake Total 650 Output Total 600 Balance 50 Intake, IV 650 Output, Urine 600 Patient 66.224 kg 65.771 kg Weight Weight Bed scale Reported by Patient Measurement Method Physical Exam General Appearance: well developed/nourished, alert, awake Head: atraumatic, normal appearance Eyes: Bilateral: normal appearance. Respiratory: no respiratory distress Gastrointestinal: soft, non-tender Rectal: deferred Extremities: no edema Neurologic/Psych: awake, alert, oriented x 3 Cranial Nerves: normal hearing, normal speech Skin: intact, normal color, warm/dry Last 24 Hours of Labs: Laboratory Tests 02/05 Chemistry Sodium (137 - 145 mmol/L) 138 Potassium (3.5 - 5.1 mmol/L) 3.8 Chloride (98 - 107 mmol/L) 107 Carbon Dioxide (22 - 30 mmol/L) 20 L Anion Gap (5 - 16) 11 BUN (7 - 17 mg/dL) 17 Creatinine (0.5 - 1.0 mg/dL) 1.3 H Estimated GFR (>60 ml/min) 47 L BUN/Creatinine Ratio (7 - 25 %) 13.1 Lactic Acid (0.7 - 2.1 mmol/L) 1.2 Hematology CBC w Diff MAN DIFF ORDERED WBC (4.8 - 10.8 /CUMM) 18.0 H RBC (4.20 - 5.40 /CUMM) 3.38 L Hgb (12.0 - 16.0 G/DL) 11.2 L Hct (37 - 47 %) 33.5 L MCV (81.0 - 99.0 FL) 99.0 MCH (27.0 - 31.0 PG) 33.2 H MCHC (33.0 - 37.0 G/DL) 33.5 RDW (11.5 - 14.5 %) 15.3 H Plt Count (130 - 400 /CUMM) 187 MPV (7.4 - 10.4 FL) 10.9 H Gran % (42.2 - 75.2 %) 93.0 H Lymphocytes % (20.5 - 51.1 %) 3.6 L Monocytes % (1.7 - 9.3 %) 2.6 Eosinophils % (0 - 5 %) 0.8 Basophils % (0.0 - 2.0 %) 0 Absolute Granulocytes (1.4 - 6.5 /CUMM) 16.7 H Segmented Neutrophils (42.2 - 75.2 %) 71 Band Neutrophils (0.0 - 5.0 %) 14 H Absolute Lymphocytes (1.2 - 3.4 /CUMM) 0.6 L Lymphocytes (20.5 - 51.1 %) 4 L Monocytes (1.7 - 9.3 %) 6 Absolute Monocytes (0.10 - 0.60 /CUMM) 0.5 Eosinophils (0 - 5.0 %) 5 Absolute Eosinophils (0.0 - 0.7 /CUMM) 0.2 Absolute Basophils (0.0 - 0.2 /CUMM) 0 Platelet Estimate (ADEQUATE) VERIFIED BY SMEAR Normocytic RBCs VERIFIED Normochromic RBCs VERIFIED Urines Ur Random Creatinine (mg/dL) 206.7 Ur Random Sodium (30 - 90 mmol/L) < 5 L Ur Random Potassium (mmol/L) 57.8 Fraction Sodium Excret (<1% %) 0.0 02/04 2010 Urines Urinalysis LIGHT H Urine Color (YEL,AMB,STR) YEL Urine Clarity (CLEAR) CLDY H Urine pH (5.0 - 8.0) 6.0 Ur Specific [place] (1.001 - 1.035) 1.025 Urine Protein (NEG,<30 MG/DL) 100 H Urine Ketones (NEG) NEG Urine Nitrite (NEG) POS H Urine Bilirubin (NEG) NEG Urine Urobilinogen (0.1 - 1.0 EU/dl) 0.2 Ur Leukocyte Esterase (NEG) SMALL H Ur Microscopic SEDIMENT EXAMINED Urine RBC (0 - 5 /HPF) 3-5 Urine WBC (0 - 2 /HPF) 15-25 H Ur Epithelial Cells (NONE,FEW) PACKD H Urine Bacteria (NEG/NONE) PACKD H Urine Mucus (FEW,NONE) FEW Urine Hemoglobin (NEG) LARGE H Urine Glucose (N MG/DL) NEG 02/04 1939 Chemistry Sodium (137 - 145 mmol/L) 133 L Potassium (3.5 - 5.1 mmol/L) 3.3 L Chloride (98 - 107 mmol/L) 99 Carbon Dioxide (22 - 30 mmol/L) 24 Anion Gap (5 - 16) 10 BUN (7 - 17 mg/dL) 16 Creatinine (0.5 - 1.0 mg/dL) 1.4 H Estimated GFR (>60 ml/min) 43 L BUN/Creatinine Ratio (7 - 25 %) 11.4 Glucose (65 - 99 mg/dL) 137 H Lactic Acid (0.7 - 2.1 mmol/L) 2.7 H Calcium (8.4 - 10.2 mg/dL) 8.6 Total Bilirubin (0.2 - 1.3 mg/dL) 0.9 AST (14 - 36 U/L) 29 ALT (9 - 52 U/L) 21 Alkaline Phosphatase (<127 U/L) 75 Total Protein (6.3 - 8.2 g/dL) 5.6 L Albumin (3.5 - 5.0 g/dL) 3.1 L Globulin (1.9 - 4.2 gm/dL) 2.5 Albumin/Globulin Ratio (1.1 - 2.2 %) 1.2 Lipase (23 - 300 U/L) < 10 L Total Beta HCG (NEGATIVE) NEGATIVE Hematology CBC w Diff MAN DIFF ORDERED WBC (4.8 - 10.8 /CUMM) 23.9 H RBC (4.20 - 5.40 /CUMM) 3.77 L Hgb (12.0 - 16.0 G/DL) 12.6 Hct (37 - 47 %) 37.1 MCV (81.0 - 99.0 FL) 98.3 MCH (27.0 - 31.0 PG) 33.4 H MCHC (33.0 - 37.0 G/DL) 33.9 RDW (11.5 - 14.5 %) 15.5 H Plt Count (130 - 400 /CUMM) 244 MPV (7.4 - 10.4 FL) 9.8 Gran % (42.2 - 75.2 %) 93.8 H Lymphocytes % (20.5 - 51.1 %) 2.7 L Monocytes % (1.7 - 9.3 %) 3.4 Eosinophils % (0 - 5 %) 0.1 Basophils % (0.0 - 2.0 %) 0 Absolute Granulocytes (1.4 - 6.5 /CUMM) 22.4 H Segmented Neutrophils (42.2 - 75.2 %) 90 H Band Neutrophils (0.0 - 5.0 %) 4 Absolute Lymphocytes (1.2 - 3.4 /CUMM) 0.6 L Lymphocytes (20.5 - 51.1 %) 1 L Monocytes (1.7 - 9.3 %) 5 Absolute Monocytes (0.10 - 0.60 /CUMM) 0.8 H Absolute Eosinophils (0.0 - 0.7 /CUMM) 0 Absolute Basophils (0.0 - 0.2 /CUMM) 0 Platelet Estimate (ADEQUATE) VERIFIED BY SMEAR Normocytic RBCs VERIFIED Normochromic RBCs VERIFIED Imaging Results: KIDNEYS AND URETERS: There is LEFT hydronephrosis and hydroureter secondary to a stone lodged in the LEFT ureteropelvic junction measure about 5.5 mm in diameter. Left kidney is mildly swollen, there is mild perinephric fat stranding. No CT evidence of rupture of the LEFT renal pelvis. Right kidney is normal. There are additional 2 mm nonobstructing stones in the upper and calyces LEFT kidney. BLADDER: Unremarkable. Discussed findings with radiologist who confirms it is a left UPJ stone 5.5mm in size HU of 966. Reading on Impression of CT incorrect and will be amended. Assessment/Plan Assessment/Plan 32yo female with sepsis from obstructing left UPJ stone with hydro. She has an elevated WBC, fever of 102 and hx of kidney stones. She will need left stent placement and in the setting of urosepsis, the stone will not be addressed at this time but electively. Consent obtained after risks, benefits and alternatives given. All questions answered. She is NPO/IVF and on IV ceftriaxone ABX. She will fu as an outpatient for definitive stone management with ESWL. Consult Acknowledgment - Thank you for your consult request.
--- NOTE | 2018-02-05 11:44 | PN- Att Addend ---
Attending Addendum Attending Brief Note Patient seen and examined, she is in excruciating pain. She's feeling ready for at this time. She says that it hurts everywhere. She is currently getting morphine IV for pain control. She is also on IV antibiotics. Patient is admitted with sepsis secondary to acute pyelonephritis and also has bacteremia. She has hydronephrosis secondary to obstructing ureteral stone on the left. Vital Signs Date Time Temp Pulse Resp B/P B/P Pulse O2 O2 Flow FiO2 Mean Ox Delivery Rate 02/05 0710 97.6 120 20 120/76 94 Room Air 02/05 0054 96 Room Air 02/05 0034 98.3 108 20 98/60 96 Room Air 02/04 2321 99.4 90 18 102/62 99 Room Air 02/04 2224 99.4 98 18 102/59 98 Room Air 02/04 2110 100.9 02/047 100.9 101 18 107/56 99 Room Air 02/04 1911 102.9 129 17 141/73 97 Room Air on exam; aox3, mod distress 2/2 to pain. cv; s1,s2, rrr, tachy. resp; clear abd; soft, tender on left side, + left CVA tenderness, bs+ ext; no edema Laboratory Tests 02/05 Chemistry Sodium (137 - 145 mmol/L) 138 Potassium (3.5 - 5.1 mmol/L) 3.8 Chloride (98 - 107 mmol/L) 107 Carbon Dioxide (22 - 30 mmol/L) 20 L Anion Gap (5 - 16) 11 BUN (7 - 17 mg/dL) 17 Creatinine (0.5 - 1.0 mg/dL) 1.3 H Estimated GFR (>60 ml/min) 47 L BUN/Creatinine Ratio (7 - 25 %) 13.1 Lactic Acid (0.7 - 2.1 mmol/L) 1.2 Hematology CBC w Diff MAN DIFF ORDERED WBC (4.8 - 10.8 /CUMM) 18.0 H RBC (4.20 - 5.40 /CUMM) 3.38 L Hgb (12.0 - 16.0 G/DL) 11.2 L Hct (37 - 47 %) 33.5 L MCV (81.0 - 99.0 FL) 99.0 MCH (27.0 - 31.0 PG) 33.2 H MCHC (33.0 - 37.0 G/DL) 33.5 RDW (11.5 - 14.5 %) 15.3 H Plt Count (130 - 400 /CUMM) 187 MPV (7.4 - 10.4 FL) 10.9 H Gran % (42.2 - 75.2 %) 93.0 H Lymphocytes % (20.5 - 51.1 %) 3.6 L Monocytes % (1.7 - 9.3 %) 2.6 Eosinophils % (0 - 5 %) 0.8 Basophils % (0.0 - 2.0 %) 0 Absolute Granulocytes (1.4 - 6.5 /CUMM) 16.7 H Segmented Neutrophils (42.2 - 75.2 %) 71 Band Neutrophils (0.0 - 5.0 %) 14 H Absolute Lymphocytes (1.2 - 3.4 /CUMM) 0.6 L Lymphocytes (20.5 - 51.1 %) 4 L Monocytes (1.7 - 9.3 %) 6 Absolute Monocytes (0.10 - 0.60 /CUMM) 0.5 Eosinophils (0 - 5.0 %) 5 Absolute Eosinophils (0.0 - 0.7 /CUMM) 0.2 Absolute Basophils (0.0 - 0.2 /CUMM) 0 Platelet Estimate (ADEQUATE) VERIFIED BY SMEAR Normocytic RBCs VERIFIED Normochromic RBCs VERIFIED Urines Ur Random Creatinine (mg/dL) 206.7 Ur Random Sodium (30 - 90 mmol/L) < 5 L Ur Random Potassium (mmol/L) 57.8 Fraction Sodium Excret (<1% %) 0.0 02/04 2010 Urines Urinalysis LIGHT H Urine Color (YEL,AMB,STR) YEL Urine Clarity (CLEAR) CLDY H Urine pH (5.0 - 8.0) 6.0 Ur Specific [place] (1.001 - 1.035) 1.025 Urine Protein (NEG,<30 MG/DL) 100 H Urine Ketones (NEG) NEG Urine Nitrite (NEG) POS H Urine Bilirubin (NEG) NEG Urine Urobilinogen (0.1 - 1.0 EU/dl) 0.2 Ur Leukocyte Esterase (NEG) SMALL H Ur Microscopic SEDIMENT EXAMINED Urine RBC (0 - 5 /HPF) 3-5 Urine WBC (0 - 2 /HPF) 15-25 H Ur Epithelial Cells (NONE,FEW) PACKD H Urine Bacteria (NEG/NONE) PACKD H Urine Mucus (FEW,NONE) FEW Urine Hemoglobin (NEG) LARGE H Urine Glucose (N MG/DL) NEG 02/04 1939 Chemistry Sodium (137 - 145 mmol/L) 133 L Potassium (3.5 - 5.1 mmol/L) 3.3 L Chloride (98 - 107 mmol/L) 99 Carbon Dioxide (22 - 30 mmol/L) 24 Anion Gap (5 - 16) 10 BUN (7 - 17 mg/dL) 16 Creatinine (0.5 - 1.0 mg/dL) 1.4 H Estimated GFR (>60 ml/min) 43 L BUN/Creatinine Ratio (7 - 25 %) 11.4 Glucose (65 - 99 mg/dL) 137 H Lactic Acid (0.7 - 2.1 mmol/L) 2.7 H Calcium (8.4 - 10.2 mg/dL) 8.6 Total Bilirubin (0.2 - 1.3 mg/dL) 0.9 AST (14 - 36 U/L) 29 ALT (9 - 52 U/L) 21 Alkaline Phosphatase (<127 U/L) 75 Total Protein (6.3 - 8.2 g/dL) 5.6 L Albumin (3.5 - 5.0 g/dL) 3.1 L Globulin (1.9 - 4.2 gm/dL) 2.5 Albumin/Globulin Ratio (1.1 - 2.2 %) 1.2 Lipase (23 - 300 U/L) < 10 L Total Beta HCG (NEGATIVE) NEGATIVE Hematology CBC w Diff MAN DIFF ORDERED WBC (4.8 - 10.8 /CUMM) 23.9 H RBC (4.20 - 5.40 /CUMM) 3.77 L Hgb (12.0 - 16.0 G/DL) 12.6 Hct (37 - 47 %) 37.1 MCV (81.0 - 99.0 FL) 98.3 MCH (27.0 - 31.0 PG) 33.4 H MCHC (33.0 - 37.0 G/DL) 33.9 RDW (11.5 - 14.5 %) 15.5 H Plt Count (130 - 400 /CUMM) 244 MPV (7.4 - 10.4 FL) 9.8 Gran % (42.2 - 75.2 %) 93.8 H Lymphocytes % (20.5 - 51.1 %) 2.7 L Monocytes % (1.7 - 9.3 %) 3.4 Eosinophils % (0 - 5 %) 0.1 Basophils % (0.0 - 2.0 %) 0 Absolute Granulocytes (1.4 - 6.5 /CUMM) 22.4 H Segmented Neutrophils (42.2 - 75.2 %) 90 H Band Neutrophils (0.0 - 5.0 %) 4 Absolute Lymphocytes (1.2 - 3.4 /CUMM) 0.6 L Lymphocytes (20.5 - 51.1 %) 1 L Monocytes (1.7 - 9.3 %) 5 Absolute Monocytes (0.10 - 0.60 /CUMM) 0.8 H Absolute Eosinophils (0.0 - 0.7 /CUMM) 0 Absolute Basophils (0.0 - 0.2 /CUMM) 0 Platelet Estimate (ADEQUATE) VERIFIED BY SMEAR Normocytic RBCs VERIFIED Normochromic RBCs VERIFIED A/P: 32-year-old female with past medical history significant for nephrolithiasis admitted with sepsis (fever of 102, Tachycardia and Leukocutosis with source of fever UTI/Pyelo)secondary to acute pyelonephritis, bacteremia and also found to have obstructive nephropathy with hydronephrosis and a 5 mm left ureteral stone. I called Dr. Bansal from Urology and spoke with her. Patient will be going for ureteral stent placement today. In the meantime she is covered with IV antibiotics. We'll follow-up on the final culture results from urine culture and blood culture. We have kept the patient on morphine and added Tylenol for pain control. Continue IVFs. DVT px; Hep sq.
[2018-02-05 13:11] VITALS: BP 116/74
--- NOTE | 2018-02-05 17:03 | Operative Report ---
Operative/Inv Procedure Report Surgery Date: 02/05/18 Name of Procedure: left ureteral stent placement with cystoscopy Pre-Operative Diagnosis: left obstructing proximal stone Post-Operative Diagnosis: same Estimated Blood Loss: scant Surgeon/Network Desktop Support Specialist: Karime Bansal Anesthesia: local monitored anesthesi Drains: 6x24cm stent Specimens: urine culture Complications: none Condition: stable Operative Indication: 32-year-old female with a history of left flank and left abdominal pain resulting from a obstructing left proximal stone. Operative/Procedure Note Note: This is a 32-year-old female with a history of left flank and left abdominal pain resulting from a obstructing left proximal stone. She has a history of kidney stone in the past but no history of chronic UTIs. She was admitted with sepsis elevated white count and fever of 102 today. She was consented for left ureteral stent placement and cystoscopy for urgent management of the obstructing stone causing sepsis with definitive management at a later time. The risks benefits and alternatives of the surgery were given and all questions were answered. Patient was taken to the operating room placed on the operating table in supine position. Timeout was performed. IV antibiotics were already received by the patient. IV sedation anesthesia was started. She was placed in the dorsal lithotomy position. She was prepped and draped in standard sterile fashion. Cystoscope was placed into the bladder and the bladder was globally inspected. There were no abnormalities trabeculation or masses. The ureteral orifices were easily identified. The left ureteral orifice was cannulated with a solo part guidewire into the renal pelvis with fluoroscopic guidance. A 6 x 24 cm ureteral stent was then placed over the wire. Once the renal portion was seen and the distal portion was in the bladder the wire was removed and the stent was seen to be in excellent position. As soon as the guidewire was placed she had purulent urine E Deflux from the left ureter. The urine culture was sent from this. Patient tolerated the procedure well. She was transferred to the recovery room stable condition. Findings: Left obstructing urinary system with fanta pus emanating from the left ureteral orifice once the guidewire was placed. Discharge Disposition: PACU
--- NOTE | 2018-02-05 18:05 | RADIOLOGY REPORT ---
EXAMINATION: INTRAOPERATIVE FLUOROSCOPIC GUIDANCE AND ABDOMEN CLINICAL INFORMATION: Ureteral calculus. Stent placement. COMPARISON: 02/04/2018. TECHNIQUE: Fluoroscopic time was utilized in the OR for Dr. Bansal. Fluoroscopic images were obtained in the AP projection. FINDINGS: Fluoroscopic guidance was provided during placement of a left double-J ureteral stent. Positioning is appropriate. FLUOROSCOPY TIME: 4 seconds of fluoroscopic time was utilized for the entirety of this examination. IMPRESSION: Fluoroscopic guidance was provided during placement of a left double-J ureteral stent. Positioning is appropriate.
[2018-02-05 22:51] VITALS: BP 106/70
[2018-02-06 06:28] VITALS: BP 114/80
--- NOTE | 2018-02-06 07:06 | PN- Housestaff ---
See Addendum Eloise RAYA,Nivia 02/06/18 0706: Subjective Follow-up For: Left pyelonephritis Subjective: Patient seen and examined at bedside in no overnight events. Patient complains of pain on and off while on ambulation. Denies nausea. Review of Systems Constitutional: Reports: no symptoms, see HPI. Objective Last 24 Hrs of Vital Signs/I&O Vital Signs Date Time Temp Pulse Resp B/P B/P Pulse O2 O2 Flow FiO2 Mean Ox Delivery Rate 02/06 0628 99.0 104 30 114/80 96 Room Air 02/05 2251 98.3 96 18 106/70 95 Room Air 02/05 1311 97.7 100 18 116/74 96 Room Air Intake & Output 02/06 1600 02/06 0800 02/06 0000 Intake Total 1050 500 Output Total Balance 1050 500 Intake, IV 800 400 Intake, Oral 250 100 Patient 160 lb Weight Physical Exam General Appearance: Alert, Oriented X3, Cooperative, No Acute Distress Cardiovascular: Normal S1, Normal S2, No Murmurs Lungs: Normal Air Movement Abdomen: mild flank tenderness Neurological: Normal Speech, Strength at 5/5 X4 Ext, Normal Tone, Sensation Intact Extremities: No Cyanosis, No Edema, Normal Pulses Current Medications: Current Medications Sig/Ashley Start time Last Medication Dose Route Stop Time Status Admin Acetaminophen 1,000 MG Q6-PRN PRN 02/06 0430 AC 02/06 N/A 1 UNIT IV 0615 Acetaminophen 1,000 MG Q8P PRN 02/05 0945 DC 02/06 N/A 1 UNIT IV 02/06 1744 0010 Albuterol Sulfate 2 PUF Q4 PRN 02/05 0100 AC 02/06 INH 0624 Alprazolam 0.25 MG TID PRN 02/05 0100 AC 02/06 PO 02/12 0059 0010 Ceftriaxone Sodium 1,000 MG 2100 02/05 2100 AC 02/05 IV 2103 Dextrose/Sodium 1,000 ML Q13H 02/05 0745 AC 02/05 Chloride IV 2112 Docusate Sodium 100 MG BID 02/06 0900 AC PO Fentanyl Citrate 100 MCG .STK-MED ONE 02/05 1710 DC IM 02/05 1711 Heparin Sodium 5,000 UNIT Q8 02/05 0600 AC 02/06 (Porcine) SC 0616 Hydromorphone HCl 2 MG .STK-MED ONE 02/05 1736 DC IM 02/05 1737 Morphine Sulfate 2 MG ONCE ONE 02/06 0430 DC 02/06 IV 02/06 0431 0429 Morphine Sulfate 2 MG ONCE ONE 02/05 1545 DC 02/05 IV 02/05 1546 1614 Morphine Sulfate 8 MG .STK-MED ONE 02/05 1538 DC IV 02/05 1539 Morphine Sulfate 4 MG Q4P PRN 02/05 0315 DC 02/06 IV 0121 Ondansetron HCl 4 MG .STK-MED ONE 02/05 1003 DC IM 02/05 1004 Ondansetron HCl 4 MG Q6P PRN 02/04 2330 AC 02/05 IV 1006 Oxycodone/ 1 TAB Q6P PRN 02/06 0845 AC Acetaminophen PO Patient Medication 1 ED ONE ONE 02/05 1830 DC Teaching ED 02/05 1831 Sodium Chloride 1,000 ML .Q10H 02/04 2355 DC 02/05 IV 02/05 1954 0033 Last 24 Hrs of Lab/[place] Results Last 24 Hrs of Labs/Mics: Laboratory Tests 02/06/18 0730: Sodium Pending, Potassium Pending, Chloride Pending, Carbon Dioxide Pending, Anion Gap Pending, BUN Pending, Creatinine Pending, BUN/Creatinine Ratio Pending , CBC w Diff Pending, WBC Pending, RBC Pending, Hgb Pending, Hct Pending, MCV Pending, MCH Pending, MCHC Pending, RDW Pending, Plt Count Pending, MPV Pending Microbiology 02/05 1630 URINE ROUT: Urine Culture - RES GRAM NEGATIVE RODS Assessment/Plan Assessment: Ms Nioñ is a 32 year old woman w/ a PMHx of nephrolithiasis( dx'ed 2012 ), last UTI ( dx'ed 2012), came in for a evaluation of left flank pain radiating to the LLQ that started on the previous night of presentatation. Pain was not relieved on taking NSAID, and she woke up early in the am with worsening pain, associated w/ nausea, but no vomiting. Reported fever and chills. Also reported cloudy urine, and dyspurea but no hematurea. Assessment and plan Problem list: 1. Left Pyelonephritis secondary due to nephrolithiasis causing left-sided hydroureteronephrosis. 2. KENNEDY-resolving 3. Sepsis * Patient being treated with IV fluids for her KENNEDY secondary due to left nephrolithiasis. Pt had left ureteral stent placement yesterday. Patient still has moderate pain on and off. We will change IV morphine to by mouth Percocet today. * Sepsis-awaiting final cultures. Urine growing Escherichia coli and blood culture growing gram-negative rods.Patient is on IV ceftriaxone * Appreciate urology follow-up * Strict I's and O's * Monitor vitals. Code-full code DVT prophylaxis-heparin Problem List: 1. Obstructive uropathy Pain Ratin Pain Location: none Pain Goal: Remain pain free Pain Plan: tylenol Tomorrow's Labs & Rationales: cbc,bep Ted RAYA,Serena 02/06/18 1117: Attending MD Review Statement Attending Statement Attending MD Statement: examined this patient, discuss w/resident/PA/DIE REPAIRER FORGING, agreed w/resident/PA/DIE REPAIRER FORGING, reviewed EMR data (avail), discussed with nursing, discussed with case mgmt, reviewed images, amended to note Attending Assessment/Plan: Patient seen and examined, still complaining of pain in the left flank region. Patient is status post left ureteral stent placement with cystoscopy yesterday with Dr. Bansal. Vital Signs Date Time Temp Pulse Resp B/P B/P Pulse O2 O2 Flow FiO2 Mean Ox Delivery Rate 02/06 0628 99.0 104 30 114/80 96 Room Air 02/05 2251 98.3 96 18 106/70 95 Room Air 02/05 1311 97.7 100 18 116/74 96 Room Air on exam; aox3, nad. cv; s1,s2, rrr resp; clear abd; soft, tender in left flank, bs+ ext: no edema Laboratory Tests 02/06 0730 Chemistry Sodium (137 - 145 mmol/L) 138 Potassium (3.5 - 5.1 mmol/L) 3.4 L Chloride (98 - 107 mmol/L) 108 H Carbon Dioxide (22 - 30 mmol/L) 21 L Anion Gap (5 - 16) 10 BUN (7 - 17 mg/dL) 17 Creatinine (0.5 - 1.0 mg/dL) 1.1 H Estimated GFR (>60 ml/min) 57 L BUN/Creatinine Ratio (7 - 25 %) 15.5 Hematology CBC w Diff MAN DIFF ORDERED WBC (4.8 - 10.8 /CUMM) 11.8 H RBC (4.20 - 5.40 /CUMM) 3.19 L Hgb (12.0 - 16.0 G/DL) 10.6 L Hct (37 - 47 %) 31.5 L MCV (81.0 - 99.0 FL) 98.6 MCH (27.0 - 31.0 PG) 33.2 H MCHC (33.0 - 37.0 G/DL) 33.6 RDW (11.5 - 14.5 %) 15.8 H Plt Count (130 - 400 /CUMM) 137 MPV (7.4 - 10.4 FL) 11.0 H Gran % (42.2 - 75.2 %) 90.9 H Lymphocytes % (20.5 - 51.1 %) 5.2 L Monocytes % (1.7 - 9.3 %) 2.3 Eosinophils % (0 - 5 %) 1.5 Basophils % (0.0 - 2.0 %) 0.1 Absolute Granulocytes (1.4 - 6.5 /CUMM) 10.7 H Segmented Neutrophils (42.2 - 75.2 %) 81 H Band Neutrophils (0.0 - 5.0 %) 8 H Absolute Lymphocytes (1.2 - 3.4 /CUMM) 0.6 L Lymphocytes (20.5 - 51.1 %) 4 L Monocytes (1.7 - 9.3 %) 7 Absolute Monocytes (0.10 - 0.60 /CUMM) 0.3 Absolute Eosinophils (0.0 - 0.7 /CUMM) 0.2 Absolute Basophils (0.0 - 0.2 /CUMM) 0 Platelet Estimate (ADEQUATE) VERIFIED BY SMEAR Normocytic RBCs VERIFIED Normochromic RBCs VERIFIED A/P: 32-year-old female with past medical history significant for nephrolithiasis admitted with sepsis (fever of 102, Tachycardia and Leukocutosis with source of fever UTI/Pyelo)secondary to acute pyelonephritis, bacteremia and also found to have obstructive uropathy with hydronephrosis and a 5 mm left ureteral stone. Patient is status post left ureteral stent placement with cystoscopy yesterday with Dr. Bansal. Leukocytosis and creatinine improving. Patient growing Escherichia coli in the urine culture. Blood culture growing gram-negative dennise. Final cultures and sensitivities still pending. We'll switch her morphine to oral Percocet. We can stop the IV fluids if by mouth intake is adequate. We will follow-up on the final cultures and adjust antibiotics accordingly. Patient will follow-up with urology in 1-2 weeks for the stent removal and stone extraction. Continue current antibiotic still we have sensitivities back. Patient on heparin subcutaneous for DVT prophylaxis.
--- NOTE | 2018-02-06 07:18 | Patient Discharge Instructions ---
Discharge Instructions General Discharge Information You were seen/treated for: Left pyelonephritis Watch for these problems: In case of fever, chills, flank pain, abdominal pain, urethral discharge please go to the nearest emergency room Special Instructions: Please follow-up with your primary care provider/urologist within 1-2 weeks of discharge and let them know about your recent admission at [facility]. please repeat cbc in 1 week and follow up with PCP Diet Continue normal diet: Yes Activity Full Activity/No Limits: No Activity Self Limited: Yes Acute Coronary Syndrome Inclusion Criteria At DC or during hospital stay patient has or had the following: ACS DIAGNOSIS No Discharge Core Measures Meds if any: Prescribed or Continued at Discharge Meds if any: NOT Prescribed or Continued at Discharge Congestive Heart Failure Inclusion Criteria At DC or during hospital stay patient has or had the following: CHF DIAGNOSIS No Discharge Core Measures Meds if any: Prescribed or Continued at Discharge Meds if any: NOT Prescribed or Continued at Discharge Cerebrovascular accident Inclusion Criteria At DC or during hospital stay patient has or had the following: CVA/TIA Diagnosis No Discharge Core Measures Meds if any: Prescribed or Continued at Discharge Meds if any: NOT Prescribed or Continued at Discharge Venous thromboembolism Inclusion Criteria VTE Diagnosis No VTE Type NONE VTE Confirmed by (Test) NONE Discharge Core Measures - Per Current guidelines, there needs to be overlap - treatment for the first 5 days of Warfarin therapy. - If discharged on Warfarin prior to 5 days of - overlap therapy, the patient will need to be - assessed for post discharge needs including - *Post discharge parental anticoagulation - *Warfarin and/or parental anticoagulation education - *Follow up date to check INR post discharge At least 5 days overlap therapy as Inpatient No Meds if any: Prescribed or Continued at Discharge Note: Overlap Therapy is Warfarin and Anticoagulant Meds if any: NOT Prescribed or Continued at Discharge
--- NOTE | 2018-02-06 07:46 | Discharge Summary ---
Visit Information Visit Dates Admission Date: 02/04/18 Discharge Date: 02/07/18 Hospital Course Course Attending Physician: Serena Jean MD Primary Care Physician: Roel RAYA,Levar Johnson Hospital Course: Ms. Niño is a 32yo F w/ pMH of nephrolithiasis in 2002 s/p passage of two stones by medication without procedure, and one more stone left in the left kidney, benign breast tumors s/p resection, IUD x 7 yrs, hx of HTN during , hx of UTI in 2017, presented with left flank pain radiating to the left lower quadrant w/ fever/nausea/decreased appetite, but no vomit. She had this left flank pain that was not resolved by Aleve overnight. She was also currently having her menstrual period day 3 with spotty bloody, however denied hematuria and endorsed cloudy urine, with possible foul smell during ER. She had loose stool couple days ago but not currently. Hospital course Patient was admitted for sepsis secondary due to left pyelonephritis due possibly to nephrolithiasis causing left-sided hydroureteronephrosis. Patient also had acute kidney injury due to the same. Patient was treated with ceftriaxone, IV fluids, pain medication. Patient urine and blood culture grew Escherichia coli which was sensitive to ceftriaxone/ciprofloxacin/Augmentin. Patient continued having abdominal pain, and hence urology was called. The urologist decided to do a left ureteral stent. Patient had a left double-J ureteral stent placed. Patient was advised by urologist to follow-up in her clinic within a week for possible removal of stent/lithotripsy and patient was sent home with Bactrim for 14 days total. During the hospital course patient platelet count dropped significantly from 244 --->127 and hence heparin was stopped. Discharge platelet count was 127. Patient advised to do CBC in 1 week and follow with the primary care physician. Allergies: Coded Allergies: No Known Allergies (07/15/17) Pertinent Lab Results: Abdominal x-ray Fluoroscopic guidance was provided during placement of a left double-J ureteral stent. Positioning is appropriate. Abdominal CAT scan February 04 1. Left renal hydronephrosis secondary to a 5.5 mm stone now lodged in the LEFT ureter at the ureterovesicular junction. Left kidney mildly swollen, mild perinephric fat stranding present. 2. There are additional 2 mm nonobstructing stones in the upper calyx LEFT kidney. 2 mm nonobstructing stone lower calyx LEFT kidney. 3. Enlarged liver unchanged. 4. Mildly enlarged retroperitoneal LEFT periaortic lymph nodes might be reactive. Clinical correlation and follow-up recommended. Abdominal CAT scan February 06 1. Left-sided double-J stents in the collecting system. There is a nonobstructive 6 x 4 mm stone in the proximal left ureter. There is no hydronephrosis. 2. Small bilateral pleural effusions and bibasilar infiltrate/atelectasis. 3. IUD in endometrial cavity. Disposition Summary Disposition Principal Diagnosis: Sepsis/bacteremia -Left renal hydronephrosis Additional Diagnosis: None Discharge Disposition: home or self care Discharge Instructions General Discharge Information Code Status: Full Code Patient's Diet: Regular diet Patient's Activity: As tolerated Follow-Up Instructions/Appts: Please follow-up with the primary care provider/urologist within 1-2 weeks of discharge. Please follow-up with your primary care provider and do a follow-up CBC in 1 week. Medications at Discharge Discharge Medications: Continue taking these medications: Multivitamin (Daily Value) 1 EACH TABLET 1 Tablet ORAL DAILY Comments: NOT GIVEN Start taking the following new medications: Sulfamethoxazole/Trimethoprim (Bactrim Ds Tablet) 800 MG-160 MG TABLET 1 Tablet ORAL TWICE DAILY Qty = 22 No Refills Instructions: . Comments: NOT GIVEN Oxycodone HCl/Acetaminophen (Percocet 5-325 MG Tablet) 5 MG-325 MG TABLET 1 Tablet ORAL EVERY SIX HOURS NEEDED as needed for PAIN SCALE 4-6 ( MODERATE) Qty = 12 No Refills Instructions: . Comments: Last Taken:02/07/18 Time:10AM Copies To: Rolf RAYA,Karime; Sania RAYA,Gopal Cobb
[2018-02-06 09:13] LABS: ABSOLUTE BASOPHIL COUNT 0 /CUMM (0.0-0.2); ABSOLUTE EOSINOPHIL COUNT 0.2 /CUMM (0.0-0.7); ABSOLUTE GRANULOCYTE CT 10.7 /CUMM (1.4-6.5); ABSOLUTE LYMPH COUNT 0.6 /CUMM (1.2-3.4); ABSOLUTE MONOCYTE COUNT 0.3 /CUMM (0.10-0.60); BASOPHIL % 0.1 % (0.0-2.0); EOSINOPHIL % 1.5 % (0-5); GRANULOCYTE % 90.9 % (42.2-75.2); HEMATOCRIT 31.5 % (37-47); MEAN CORPUSCULAR HGB 33.2 PG (27.0-31.0); MEAN CORPUSCULAR HGB CONC 33.6 G/DL (33.0-37.0); MEAN CORPUSCULAR VOLUME 98.6 FL (81.0-99.0); PLATELET COUNT 137 /CUMM (130-400); RBC DISTRIBUTION WIDTH 15.8 % (11.5-14.5); RED BLOOD CELL CT 3.19 /CUMM (4.20-5.40); WHITE BLOOD CELL COUNT 11.8 /CUMM (4.8-10.8)
--- NOTE | 2018-02-06 13:39 | PN- Student ---
Subjective Subjective: No acute events overnight. Patient seen and examined this morning. Patient resting in bed. Patient is better today. Patient still complaining of pain, specially in the left lower and upper quadrant of the abdomen. Pain is more with abulation. Complains of headache. Denied SOB, chest pain. Objective Objective: Vital Signs Date Time Temp Pulse Resp B/P B/P Pulse O2 O2 Flow FiO2 Mean Ox Delivery Rate 02/06 0628 99.0 104 30 114/80 96 Room Air 02/05 2251 98.3 96 18 106/70 95 Room Air Intake & Output 02/06 1600 02/06 0800 02/06 0000 Intake Total 1050 500 Output Total Balance 1050 500 Intake, IV 800 400 Intake, Oral 250 100 Patient 160 lb Weight PE: General= young female in no acute distess HEENT= NCAT, anicteric sclera, moit oral mucosa, no exudate Lungs= symetrical chest expansion, clear bilateral CVS= normal S1 and S2, no murmur, rub or gallop Abd= present bowel sounds, tender to palpation over the left upper and lower quadrant, some cva tenderness, nondistended Results Results: Laboratory Tests 02/06/18 0730: Anion Gap 10, Estimated GFR 57 L, BUN/Creatinine Ratio 15.5, CBC w Diff MAN DIFF ORDERED, RBC 3.19 L, MCV 98.6, MCH 33.2 H, MCHC 33.6, RDW 15.8 H, MPV 11.0 H, Gran % 90.9 H, Lymphocytes % 5.2 L, Monocytes % 2.3, Eosinophils % 1.5, Basophils % 0.1, Absolute Granulocytes 10.7 H, Segmented Neutrophils 81 H , Band Neutrophils 8 H, Absolute Lymphocytes 0.6 L, Lymphocytes 4 L, Monocytes 7, Absolute Monocytes 0.3, Absolute Eosinophils 0.2, Absolute Basophils 0, Platelet Estimate VERIFIED BY SMEAR, Normocytic RBCs VERIFIED, Normochromic RBCs VERIFIED 02/05/18 0716: Anion Gap 11, Estimated GFR 47 L, BUN/Creatinine Ratio 13.1, CBC w Diff MAN DIFF ORDERED, RBC 3.38 L, MCV 99.0, MCH 33.2 H, MCHC 33.5, RDW 15.3 H, MPV 10.9 H, Gran % 93.0 H, Lymphocytes % 3.6 L, Monocytes % 2.6, Eosinophils % 0.8, Basophils % 0, Absolute Granulocytes 16.7 H, Segmented Neutrophils 71, Band Neutrophils 14 H, Absolute Lymphocytes 0.6 L, Lymphocytes 4 L, Monocytes 6, Absolute Monocytes 0.5, Eosinophils 5, Absolute Eosinophils 0.2, Absolute Basophils 0, Platelet Estimate VERIFIED BY SMEAR, Normocytic RBCs VERIFIED, Normochromic RBCs VERIFIED 02/04/18 2200: Lactic Acid 1.2 02/04/18 2012: Ur Random Creatinine 206.7, Ur Random Sodium < 5 L, Ur Random Potassium 57.8, Fraction Sodium Excret 0.0 02/04/182009: Urinalysis LIGHT H, Urine Color YEL, Urine Clarity CLDY H, Urine pH 6.0, Ur Specific [place] 1.025, Urine Protein 100 H, Urine Ketones NEG, Urine Nitrite POS H, Urine Bilirubin NEG, Urine Urobilinogen 0.2, Ur Leukocyte Esterase SMALL H, Ur Microscopic SEDIMENT EXAMINED, Urine RBC 3-5, Urine WBC 15-25 H, Ur Epithelial Cells PACKD H, Urine Bacteria PACKD H, Urine Mucus FEW, Urine Hemoglobin LARGE H, Urine Glucose NEG 02/04/189: Anion Gap 10, Estimated GFR 43 L, BUN/Creatinine Ratio 11.4, Glucose 137 H, Lactic Acid 2.7 H, Calcium 8.6, Total Bilirubin 0.9, AST 29, ALT 21, Alkaline Phosphatase 75, Total Protein 5.6 L, Albumin 3.1 L, Globulin 2.5, Albumin/ Globulin Ratio 1.2, Lipase < 10 L, Total Beta HCG NEGATIVE, CBC w Diff MAN DIFF ORDERED, RBC 3.77 L, MCV 98.3, MCH 33.4 H, MCHC 33.9, RDW 15.5 H, MPV 9.8, Gran % 93.8 H, Lymphocytes % 2.7 L, Monocytes % 3.4, Eosinophils % 0.1, Basophils % 0, Absolute Granulocytes 22.4 H, Segmented Neutrophils 90 H, Band Neutrophils 4, Absolute Lymphocytes 0.6 L, Lymphocytes 1 L, Monocytes 5, Absolute Monocytes 0.8 H, Absolute Eosinophils 0, Absolute Basophils 0, Platelet Estimate VERIFIED BY SMEAR, Normocytic RBCs VERIFIED, Normochromic RBCs VERIFIED Microbiology 02/05 1630 URINE ROUT: Urine Culture - RES GRAM NEGATIVE RODS 02/04 2010 URINE ROUT: Urine Culture - COMP ESCHERICHIA COLI 02/04 1943 BLOOD: Blood Culture - RES GRAM NEGATIVE RODS 02/04 1939 BLOOD: Blood Culture - RES GRAM NEGATIVE RODS Assessment/Plan Assessment: 32 y/o F with PMHx of nephrolithiasis (2002) s/p passage, benign breast tumor s/ p resection, UTI (2017) who presented to the ED with left flank pain radiating to the lower quadrant, fever, nausea, cloudy urine with possible foul smelling. At the time of admission, vitals- fever of 102.9, tachycardia of 129 and BP of 107/56. Labs were concerning of WBC of 23.9 w/ 93.8% gran, hyponatremia of 133, hypokalemia of 3.3, elevated Cr of 1.4, lactic acidosis of 2.7. UA with +ve le, nitrates and pyuria. CT abd- left renal hydronephrosis 2/2 to 5.5 mm stone at the ureterovesicular junction (see report). At this time, sepsis 2/2 to pyelonephritis in the setting of obstructive uropathy. Blood cx positive for gram - dennise. urine cx positive for E. coli. Urine culture showing sensitivity to ceftriaxone. WBC treding down 18 -> 12. Stent placement yesterday and patient tolerated the procedure okay. Tolerating food and ambulating. Sodium stable at 138, and creatining improving at 1.1. Potassium in the lower side at 3.4. Plan: Sepsis 2/2 to pyelonephritis due to obstructive stone: -[place] control with PO Percoset and colase -Ceftriaxone 1g IV for now (urine cx showing sensitivity to ceftriaxone), blood sensitivity still pending -F/U operative report and urology recs: succeful stent placement. patient follow up with urology within 1-2 wks for stent removal and stone extraction KENNEDY (improving) -FENa <1% and Harsh <5 consistent with prerenal, but in the setting of neprolithiasis can be postrenal Hyponatremia (improved) Hypokalemia -40 meq once DVT ppx-Hep SQ Code- Full code
[2018-02-06 14:47] VITALS: BP 110/88
[2018-02-06 21:58] VITALS: BP 126/80
--- NOTE | 2018-02-06 22:18 | CT SCAN REPORT ---
EXAMINATION: CT ABDOMEN AND PELVIS WITHOUT CONTRAST CLINICAL INFORMATION: Sudden onset of pain. Urination frequently. Left ureteral stent placement for nephrolithiasis. COMPARISON: None TECHNIQUE: Multidetector volumetric imaging was performed from the superior aspect of the liver through the pubic symphysis. Sagittal and coronal reformatted images were obtained on the technologist's workstation. DLP: 289.54 mGy-cm FINDINGS: LUNG BASES: There are small bilateral pleural effusions and small bibasilar infiltrates at the lung bases bilateral. LIVER, GALLBLADDER, AND BILIARY TREE: The liver is normal in size, shape, and attenuation. No focal hepatic lesion or biliary ductal dilatation is present. The gallbladder is unremarkable with no evidence of radiopaque gallstones, gallbladder wall thickening, or obvious pericholecystic inflammatory changes. PANCREAS: Unremarkable. SPLEEN: Unremarkable. ADRENAL GLANDS: Unremarkable. KIDNEYS AND URETERS: Left kidney is larger than the right. Left kidney measures 15.2 cm superior inferior. Right kidney measures 13.9 cm superior inferior. There is a left-sided double-J stent in place in the collecting system extending from the renal pelvis to the bladder. There is a 6 x 4 mm stone in the proximal right ureter adjacent stent. There is no hydronephrosis. There are 2 adjacent less than 1 mm size stones in the upper pole of the left kidney. There is a similar sized stone in the lower pole of left kidney. There is a cortical cyst in the lower pole left kidney measuring about 1.3 cm. There is a small calcification at the wall the cyst. BLADDER: Unremarkable. GASTROINTESTINAL TRACT: The small and large bowel are unremarkable. The appendix is unremarkable. ABDOMINAL WALL: No significant hernia is appreciated. LYMPH NODES: Normal. VASCULAR: Unremarkable. PELVIC VISCERA: The uterus is anteverted. IUD in the endometrial cavity. No adnexal abnormality. OSSEOUS STRUCTURES: Unremarkable. IMPRESSION: 1. Left-sided double-J stents in the collecting system. There is a nonobstructive 6 x 4 mm stone in the proximal left ureter. There is no hydronephrosis. 2. Small bilateral pleural effusions and bibasilar infiltrate/atelectasis. 3. IUD in endometrial cavity.
[2018-02-07 06:51] VITALS: BP 128/78
--- NOTE | 2018-02-07 07:03 | PN- Housestaff ---
Eloise RAYA,Nivia 02/07/18 0703: Subjective Follow-up For: Left-sided pyelonephritis Subjective: Patient seen and examined at bedside. She was lying in her bed comfortably. She complains of 4 x 10 left flank pain on and off particularly when her bladder is full. She denies any cough, chills, shortness of breath. Bowel and bladder habits normal Review of Systems Constitutional: Reports: no symptoms, see HPI. Objective Last 24 Hrs of Vital Signs/I&O Vital Signs Date Time Temp Pulse Resp B/P B/P Pulse O2 O2 Flow FiO2 Mean Ox Delivery Rate 02/07 0651 98.4 101 22 128/78 97 Room Air 02/06 2158 98.2 106 22 126/80 96 Room Air 02/06 1447 98.2 107 22 110/88 95 Intake & Output 02/07 1600 02/07 0800 02/07 0000 Intake Total 240 240 Output Total Balance 240 240 Intake, Oral 240 240 Physical Exam General Appearance: Alert, Oriented X3, Cooperative, No Acute Distress Cardiovascular: Regular Rate, Normal S1, Normal S2, No Murmurs Lungs: Clear to Auscultation Abdomen: Soft, No Tenderness, No Hepatospenomegaly Neurological: Normal Speech, Strength at 5/5 X4 Ext, Normal Tone, Sensation Intact, Cranial Nerves 3-12 NL Current Medications: Current Medications Sig/Ashley Start time Last Medication Dose Route Stop Time Status Admin Acetaminophen 1,000 MG Q6-PRN PRN 02/06 0430 AC 02/07 N/A 1 UNIT IV 0607 Albuterol Sulfate 2 PUF Q4 PRN 02/05 0100 02/06 INH 1454 Alprazolam 0.25 MG TID PRN 02/05 0100 AC 02/07 PO 02/12 0059 0349 Ceftriaxone Sodium 1,000 MG 2100 02/05 2100 AC 02/06 IV 2049 Dextrose/Sodium 1,000 ML Q13H 02/05 0745 DC 02/06 Chloride IV 0957 Docusate Sodium 100 MG BID 02/06 09 AC 02/06 PO 2051 Heparin Sodium 5,000 UNIT Q8 02/05 06 AC 02/07 (Porcine) SC 0542 Melatonin 5 MG AT BEDTIME 02/07 2100 AC PO Morphine Sulfate 4 MG ONCE ONE 02/06 2130 DC 02/06 IV 05/30 2131 2134 Morphine Sulfate 4 MG Q4P PRN 02/05 0315 DC 02/06 IV 0121 Ondansetron HCl 4 MG Q6P PRN 02/04 2330 AC 02/05 IV 1006 Oxycodone/ 1 TAB Q6P PRN 02/06 0845 AC 02/07 Acetaminophen PO 0349 Patient Medication 1 ED ONE ONE 02/06 1130 DC 02/06 Teaching ED 02/06 1131 1334 Potassium Chloride 40 MEQ ONCE ONE 02/06 1315 DC 02/06 PO 02/06 1316 1335 Last 24 Hrs of Lab/[place] Results Last 24 Hrs of Labs/Mics: Laboratory Tests 02/07/18 0750: Sodium Pending, Potassium Pending, Chloride Pending, Carbon Dioxide Pending, Anion Gap Pending, BUN Pending, Creatinine Pending, BUN/Creatinine Ratio Pending , CBC w Diff Pending, WBC Pending, RBC Pending, Hgb Pending, Hct Pending, MCV Pending, MCH Pending, MCHC Pending, RDW Pending, Plt Count Pending, MPV Pending Assessment/Plan Assessment: Ms Niño is a 32 year old woman w/ a PMHx of nephrolithiasis( dx'ed 2012 ), last UTI ( dx'ed 2012), came in for a evaluation of left flank pain radiating to the LLQ that started on the previous night of presentatation. Pain was not relieved on taking NSAID, and she woke up early in the am with worsening pain, associated w/ nausea, but no vomiting. Reported fever and chills. Also reported cloudy urine, and dyspurea but no hematurea. Assessment and plan Problem list: 1. Left Pyelonephritis secondary due to nephrolithiasis causing left-sided hydroureteronephrosis. 2. KENNEDY-resolving 3. Sepsis * Patient was treated for left pyelonephritis. Patient was given IV fluids and ceftriaxone. Her urine culture and blood culture grew Escherichia coli, sensitive to ceftriaxone/ciprofloxacin/Augmentin. We will send her home with ciprofloxacin.patient needs to be followed with the urologist and primary care physician within one to 2 weeks of discharge. * Appreciate urology follow-up * Patient had a drop in her platelet count from 244-127. Hence heparin was stopped. Patient was advised to follow-up CBC with his primary care physician * Strict I's and O's * Monitor vitals. Code-full code DVT prophylaxis-heparin Problem List: 1. Obstructive uropathy Pain Ratin Pain Location: left flank pAIN Pain Goal: Remain pain free Pain Plan: TYLENOL Tomorrow's Labs & Rationales: NONE Serena Jean MD 02/07/18 1059: Attending MD Review Statement Attending Statement Attending MD Statement: examined this patient, discuss w/resident/PA/LONGWALL MACHINE OPERATOR HELPER, agreed w/resident/PA/LONGWALL MACHINE OPERATOR HELPER, reviewed EMR data (avail), discussed with nursing, discussed with case mgmt, reviewed images, amended to note Attending Assessment/Plan: Patient seen and examined, overall feeling better. Pain has reduced. Leukocytosis has resolved. Patient remains afebrile. Her blood culture and urine culture grew Escherichia coli. It is sensitive to Bactrim. Patient otherwise medically stable for discharge home today on oral antibiotics. She will follow with her primary care doctor and urologist as an outpatient in 1-2 weeks for stent removal and stone extraction. She will be discharged on few pills of percocet and oral abx.
--- NOTE | 2018-02-07 07:41 | PN- Student ---
See Addendum Subjective Subjective: Events overnight: Patient complain of worseining pain overnight, and a CT abd was performed. Today: Patiet seen and examined this morning. Patient remain afebrile. Complains of pain when urinate or the bladder is full. Pain about 4-5/10. Denied headache, chest pain, SOB, nausea/vomiting. Objective Objective: Vital Signs Date Time Temp Pulse Resp B/P B/P Pulse O2 O2 Flow FiO2 Mean Ox Delivery Rate 02/07 0651 98.4 101 22 128/78 97 Room Air 02/06 2158 98.2 106 22 126/80 96 Room Air 02/06 1447 98.2 107 22 110/88 95 Intake & Output 02/07 1600 02/07 0800 02/07 0000 Intake Total 240 240 Output Total Balance 240 240 Intake, Oral 240 240 PE: General= young female in no acute distess HEENT= NCAT, anicteric sclera, moit oral mucosa, no exudate Lungs= symetrical chest expansion, clear bilateral CVS= normal S1 and S2, no murmur, rub or gallop Abd= present bowel sounds, tender to palpation over the left upper and lower quadrant, nondistended Results Results: Laboratory Tests 02/07/18 0750: Anion Gap 7, Estimated GFR > 60, BUN/Creatinine Ratio 16.7, CBC w Diff MAN DIFF ORDERED, RBC 3.32 L, MCV 96.8, MCH 32.8 H, MCHC 33.9, RDW 16.7 H, MPV 10.6 H , Gran % 75.3 H, Lymphocytes % 13.7 L, Monocytes % 8.3, Eosinophils % 2.6, Basophils % 0.1, Absolute Granulocytes 5.1, Segmented Neutrophils 72, Band Neutrophils 2, Absolute Lymphocytes 0.9 L, Lymphocytes 17 L, Monocytes 6, Absolute Monocytes 0.6, Eosinophils 3, Absolute Eosinophils 0.2, Absolute Basophils 0, Platelet Estimate VERIFIED BY SMEAR, Normocytic RBCs VERIFIED, Normochromic RBCs VERIFIED 02/06/18 0730: Anion Gap 10, Estimated GFR 57 L, BUN/Creatinine Ratio 15.5, CBC w Diff MAN DIFF ORDERED, RBC 3.19 L, MCV 98.6, MCH 33.2 H, MCHC 33.6, RDW 15.8 H, MPV 11.0 H, Gran % 90.9 H, Lymphocytes % 5.2 L, Monocytes % 2.3, Eosinophils % 1.5, Basophils % 0.1, Absolute Granulocytes 10.7 H, Segmented Neutrophils 81 H , Band Neutrophils 8 H, Absolute Lymphocytes 0.6 L, Lymphocytes 4 L, Monocytes 7, Absolute Monocytes 0.3, Absolute Eosinophils 0.2, Absolute Basophils 0, Platelet Estimate VERIFIED BY SMEAR, Normocytic RBCs VERIFIED, Normochromic RBCs VERIFIED 02/05/18 0716: Anion Gap 11, Estimated GFR 47 L, BUN/Creatinine Ratio 13.1, CBC w Diff MAN DIFF ORDERED, RBC 3.38 L, MCV 99.0, MCH 33.2 H, MCHC 33.5, RDW 15.3 H, MPV 10.9 H, Gran % 93.0 H, Lymphocytes % 3.6 L, Monocytes % 2.6, Eosinophils % 0.8, Basophils % 0, Absolute Granulocytes 16.7 H, Segmented Neutrophils 71, Band Neutrophils 14 H, Absolute Lymphocytes 0.6 L, Lymphocytes 4 L, Monocytes 6, Absolute Monocytes 0.5, Eosinophils 5, Absolute Eosinophils 0.2, Absolute Basophils 0, Platelet Estimate VERIFIED BY SMEAR, Normocytic RBCs VERIFIED, Normochromic RBCs VERIFIED 02/04/18 2200: Lactic Acid 1.2 02/04/18 2012: Ur Random Creatinine 206.7, Ur Random Sodium < 5 L, Ur Random Potassium 57.8, Fraction Sodium Excret 0.0 02/04/18 2010: Urinalysis LIGHT H, Urine Color YEL, Urine Clarity CLDY H, Urine pH 6.0, Ur Specific [place] 1.025, Urine Protein 100 H, Urine Ketones NEG, Urine Nitrite POS H, Urine Bilirubin NEG, Urine Urobilinogen 0.2, Ur Leukocyte Esterase SMALL H, Ur Microscopic SEDIMENT EXAMINED, Urine RBC 3-5, Urine WBC 15-25 H, Ur Epithelial Cells PACKD H, Urine Bacteria PACKD H, Urine Mucus FEW, Urine Hemoglobin LARGE H, Urine Glucose NEG 02/04/18 1939: Anion Gap 10, Estimated GFR 43 L, BUN/Creatinine Ratio 11.4, Glucose 137 H, Lactic Acid 2.7 H, Calcium 8.6, Total Bilirubin 0.9, AST 29, ALT 21, Alkaline Phosphatase 75, Total Protein 5.6 L, Albumin 3.1 L, Globulin 2.5, Albumin/ Globulin Ratio 1.2, Lipase < 10 L, Total Beta HCG NEGATIVE, CBC w Diff MAN DIFF ORDERED, RBC 3.77 L, MCV 98.3, MCH 33.4 H, MCHC 33.9, RDW 15.5 H, MPV 9.8, Gran % 93.8 H, Lymphocytes % 2.7 L, Monocytes % 3.4, Eosinophils % 0.1, Basophils % 0, Absolute Granulocytes 22.4 H, Segmented Neutrophils 90 H, Band Neutrophils 4, Absolute Lymphocytes 0.6 L, Lymphocytes 1 L, Monocytes 5, Absolute Monocytes 0.8 H, Absolute Eosinophils 0, Absolute Basophils 0, Platelet Estimate VERIFIED BY SMEAR, Normocytic RBCs VERIFIED, Normochromic RBCs VERIFIED Microbiology 02/05 1630 URINE ROUT: Urine Culture - COMP ESCHERICHIA COLI 02/04 2010 URINE ROUT: Urine Culture - COMP ESCHERICHIA COLI 02/04 1943 BLOOD: Blood Culture - COMP ESCHERICHIA COLI 02/04 1939 BLOOD: Blood Culture - COMP ESCHERICHIA COLI Assessment/Plan Assessment: 32 y/o F with PMHx of nephrolithiasis (2002) s/p passage, benign breast tumor s/ p resection, UTI (2016) who presented to the ED with left flank pain radiating to the lower quadrant, fever, nausea, cloudy urine with possible foul smelling. At the time of admission, vitals- fever of 102.9, tachycardia of 129 and BP of 107/56. Labs were concerning with WBC of 23.9 w/ 93.8% gran, hyponatremia of 133 , hypokalemia of 3.3, elevated Cr of 1.4, lactic acidosis of 2.7. UA with +ve le , nitrates and pyuria. CT abd- left renal hydronephrosis 2/2 to 5.5 mm stone at the ureterovesicular junction, milld perinephric fat stranding, no abscess (see report). At this time, sepsis 2/2 to pyelonephritis in the setting of obstructive uropathy s/p double-J stents in the collecting system. Blood cx and urine cx positive for E. coli, sensitive to TMP-SMX. WBC treding down from 12 to 7. Tolerating food and ambulating. Sodium stable, and potassium stable, creatinine improved at 0.9. CT abd (02/06/18)-confirmed the stent and no hydronephrosis was presented. At this point, patient is stable to discharge. PO abx will be started (on Bactrim). Patient [facility]rologist (Dr. Bansal) Plan: Sepsis 2/2 to pyelonephritis due to obstructive stone: -[place] control with PO Percoset and colase -PO Bactrim -Follow up with Dr. Bansal within 1-2 wks for stent removal and stone extraction KENNEDY (improved) -FENa <1% and Harsh <5 consistent with prerenal, but in the setting of neprolithiasis can be postrenal Hyponatremia (improved) Hypokalemia (improved) DVT ppx-Hep SQ Code- Full code -40 meq once DVT ppx-Hep SQ Code- Full code
[2018-02-07] MEDS ORDERED: PERCOCET 5-3251 EACH PO ×2 (08:00→10:05)
[2018-02-07] MEDS ORDERED: CIPROFLOXACIN500 M2 PO ×3 (08:00→08:27)
[2018-02-07 08:27] LABS: ABSOLUTE BASOPHIL COUNT 0 /CUMM (0.0-0.2); ABSOLUTE EOSINOPHIL COUNT 0.2 /CUMM (0.0-0.7); ABSOLUTE GRANULOCYTE CT 5.1 /CUMM (1.4-6.5); ABSOLUTE LYMPH COUNT 0.9 /CUMM (1.2-3.4); ABSOLUTE MONOCYTE COUNT 0.6 /CUMM (0.10-0.60); BASOPHIL % 0.1 % (0.0-2.0); EOSINOPHIL % 2.6 % (0-5); GRANULOCYTE % 75.3 % (42.2-75.2); HEMATOCRIT 32.1 % (37-47); MEAN CORPUSCULAR HGB 32.8 PG (27.0-31.0); MEAN CORPUSCULAR HGB CONC 33.9 G/DL (33.0-37.0); MEAN CORPUSCULAR VOLUME 96.8 FL (81.0-99.0); MEAN PLATELET VOLUME 10.6 FL (7.4-10.4); PLATELET COUNT 127 /CUMM (130-400); RBC DISTRIBUTION WIDTH 16.7 % (11.5-14.5); RED BLOOD CELL CT 3.32 /CUMM (4.20-5.40); WHITE BLOOD CELL COUNT 6.7 /CUMM (4.8-10.8)
[2018-02-07] MEDS ORDERED: BACTRIM DS TAB1 EACH PO ×2 (10:01→10:05)
== END 2018-02-07 11:26 | DRG 720 ==
LOC: ERH 19:04 → ERHI 21:49 → 2NA 21:49 → ENTRNSPT 02-05 18:07 → CMPTRNSPT 02-05 18:31 → ENPENDDIS 02-07 10:27 → 2NA 02-07 11:26
PROVIDERS: Physician Assistant Medical; Student in an Organized Health Care Education/Training Program
PROC: 0T778DZ Dilation of Left Ureter with Intraluminal Device, Via Natural or Artificial Opening Endoscopic (ICD-10-PCS; principal; 2018-02-05)
DX: A41.51 Sepsis due to Escherichia coli [E. coli] (principal); E87.2 Acidosis; E87.6 Hypokalemia; E87.1 Hypo-osmolality and hyponatremia; N13.6 Pyonephrosis; R65.20 Severe sepsis without septic shock; N17.9 Acute kidney failure, unspecified; F17.200 Nicotine dependence, unspecified, uncomplicated
CPT/HCPCS: 2NASP; 84133; 84300; ERO; 36592; 74018; 74176; 81001; 81025; 82436; 82570; 87040; 87086; 93005; 93010; 96361; 96374; 96375; 96376; C2617; J0131; J0696; J1644; J1885; J2270; J2405; J3490; J7042

== ENCOUNTER → 2018-02-15 | Day surgery (SDC) | payer OTHER ==
[~2018-02-15] VITALS: Ht 160 cm; Wt 108.0 kg
[~2018-02-15] MED LIST changes: +CIPROFLOXACIN500 M2 PO; +DAILY VALUE1 EACH PO; +TYLENOL PM EX-1 EACH PO
--- NOTE | 2018-02-15 08:43 | Operative Report ---
Operative/Inv Procedure Report Surgery Date: 02/15/18 Name of Procedure: ureteroscopy with laser lithotripsy of mutiple stones, stone extraction and stent placement Pre-Operative Diagnosis: left renal stones Post-Operative Diagnosis: same Estimated Blood Loss: less than 50ml Surgeon/Bag Shaker: Karime Bansal MD Anesthesia: laryngeal mask airway Drains: [id number] Specimens: stone fragments Complications: none Condition: stable Operative Indication: left renal stones with urosepsis hx s/p stent Operative/Procedure Note Note: 32-year-old female with a history of kidney stones. She had an obstructing left proximal ureteral stone last week requiring an urgent stent placement. She is here for definitive treatment of her stones and she was given the risks benefits alternatives of ureteroscopy with laser lithotripsy stone extraction and stent exchange. All questions were answered. Consent was signed and the left side was marked. Patient was taken to the operating room and placed on the operating table in the supine position. Timeout was performed. IV antibiotics were infused and SCDs were placed. She was placed in the dorsolithotomy position after LMA anesthesia was initiated. A cystoscopy was performed and the left ureteral stent was easily identified and this was grasped and brought out to the urethral opening. This was cannulated with a Solo Bard guidewire into the renal pelvis. Fluoroscopy was used throughout the procedure. This guidewire were seen to be in good position and the stent was removed. The Solo wire was then used to place a dual-lumen cath catheter and a superstiff wire was also passed up into the renal pelvis. The superstiff wire was clamped to the sterile sheets. A 25 cm ureteral access sheath was then placed first with the inner sheath followed by the inner and outer sheath together. The digital flexible ureteroscope was then used to examine the renal pelvis and calyces. The large 6 mm stone was easily identified in the renal pelvis. The calyces were examined and there were two small 1 mm stones in the mid calyx as well as the upper calyx. These were too small to be grasped but were attempted to be grasped with the 0 nitinol basket. Attention was then turned to the 6 mm stone which was fragmented with a 200 laser fiber. The fragments were then removed with the 0 nitinol basket. Some of the fragments were pulverized into radha material and left for the patient to void out. There were no remaining stones that were visible and all the calyces were examined from the upper, mid, to lower pole. No injury was identified and the scope was removed along with the ureteral access sheath and there were no stones in the ureter. The superstiff wire was then used with the cystoscope to place a 6 x 24 cm ureteral stent. This was placed in the upper pole and the wire was removed when the stent was seen to be in good position. Bladder was emptied. Stones were sent to pathology for stone analysis. Patient tolerated procedure well. She was transferred to the recovery room in stable condition Findings: left renal stones two small ones and 4x6mm Discharge Disposition: PACU
--- NOTE | 2018-02-16 06:37 | RADIOLOGY REPORT ---
EXAMINATION: CR ABDOMEN/INTRAOPERATIVE FLUOROSCOPY CLINICAL INDICATION: Left ureteral stent removal, ureteroscopy, lithotripsy and stent insertion in OR. COMPARISON: CT scan of the abdomen and pelvis dated 02/06/2018. TECHNIQUE/FINDINGS: Fluoroscopic equipment was dedicated to the operating room for the performance of an intraoperative procedure. Several (5) spot films were acquired and are archived in PACS. Please refer to operative notes for procedural detail. FLUOROSCOPY TIME: 5 seconds. IMPRESSION: Administrative dictation for intraoperative fluoroscopy and image archiving in PACS. Please refer to operative notes for details.
== END ==
LOC: STS 01:44
DX: N20.0 Calculus of kidney (principal); Z87.442 Personal history of urinary calculi; J45.909 Unspecified asthma, uncomplicated; F17.200 Nicotine dependence, unspecified, uncomplicated
CPT/HCPCS: 74018; 81025; C2617; J0690; J2250

== ENCOUNTER → 2018-03-01 | Day surgery (SDC) | payer OTHER ==
[~2018-03-01] VITALS: Ht 160 cm; Wt 108.0 kg
[~2018-03-01] MED LIST changes: +MIRENA1 EACH; +PROAIR HFA8.5 GM INH
--- NOTE | 2018-03-01 09:45 | Operative Report ---
Operative/Inv Procedure Report Surgery Date: 03/01/18 Name of Procedure: ureteroscopy, stent removal Pre-Operative Diagnosis: migrated left stent Post-Operative Diagnosis: same Estimated Blood Loss: scant Surgeon/Electrical Logging Engineer: Karime Bansal MD Anesthesia: moderate sedation Specimens: left ureteral stent Complications: none Condition: stable Operative Indication: left migrated stent Operative/Procedure Note Note: This an operative dictation on patient Sabrina Niño. She had of ureteroscopy with laser lithotripsy 2 weeks ago and had a stent placement. She came to the office to have the stent removed however it had migrated up the ureter enough and was unable to be removed in the office. As result she was scheduled to have it removed in the operating room with light sedation. She was given the risks benefits and alternatives of the surgery and she wished to proceed. Consent was obtained in the holding area. She was marked on the left side. All questions were answered. Patient was identified in the holding area and brought to the operating room placed on the operating table in the supine position. Timeout was performed. IV antibiotics were infused. IV sedation was begun. She was placed in the dorsolithotomy position and prepped and draped in the standard sterile fashion. Cystoscopy was performed and again the stent was not visualized. A semirigid ureteroscope was then used to traverse the ureteral orifice and the distal pigtail was seen in the distal ureter. This was grasped with the 0 tip basket with minimal effort. It was pulled out without difficulty and was sent as a specimen. The bladder was emptied. Patient tolerated procedure well. She was cleaned of the Betadine solution and transferred to the recovery room stable condition. Findings: left ureteral stent migrated up to the distal ureter. Discharge Disposition: Same Day Admissions
== END ==
LOC: STS 02:01
DX: T83.123A Displacement of other urinary stents, initial encounter (principal); Y83.8 Other surgical procedures as the cause of abnormal reaction of the patient, or of later complication, without mention of misadventure at the time of the procedure; Z87.442 Personal history of urinary calculi; F17.200 Nicotine dependence, unspecified, uncomplicated; J45.909 Unspecified asthma, uncomplicated
CPT/HCPCS: 81025; J0131; J0690; J1100; J2250; J2405